=== PATIENT | male | born 1980 | race Hispanic/Latino ===

== ENCOUNTER 2017-01-10 21:48 | Observation (INO) | payer MEDICAID ==
[2017-01-10 21:48] VITALS: BMI 19.0
[2017-01-10 22:27] LABS: BASO % 0.6 % (0.0-2.0); EOS # 0.2 K/uL (0.0-0.7); EOS % 3.1 % (0.0-4.0); HEMATOCRIT 46.2 % (35.0-51.0); LYMPH # 2.3 K/uL (1.0-4.3); LYMPH % 31.6 % (20.0-40.0); MEAN CELL VOLUME 94.4 fl (80.0-94.0); MEAN CORPUSCULAR HEMOGLOBIN 31.9 pg (27.0-31.0); MEAN CORPUSCULAR HGB CONC 33.8 g/dL (33.0-37.0); MEAN PLATELET VOLUME 6.9 fl (7.2-11.7); MONO # 0.4 K/uL (0.0-0.8); MONO % 5.3 % (0.0-10.0); NEUT # 4.3 K/uL (1.8-7.0); NEUT % 59.4 % (50.0-75.0); NRBC % 0.1 % (0.0-0.0); RED CELL DISTRIBUTION WIDTH 13.4 % (11.5-14.5); WHITE BLOOD COUNT 7.2 K/uL (4.8-10.8)
--- NOTE | 2017-01-10 22:31 | ED PDOC ---
HPI: Psych/Substance Abuse Time Seen by Provider: 01/10/17 21:49 Chief Complaint (Nursing): Alcohol Ingestion Chief Complaint (Provider): Alcohol Ingestion ED Caveat: Intoxicated History Per: EMS History/Exam Limitations: intoxication Onset/Duration Of Symptoms: Unknown Current Symptoms Are (Timing): Still Present Modifying Factor(s): Alcohol Involuntary Hold By: None Additional Complaint(s): Ferny Allred is a 36 year old male, with an unknown past medical history, who presents to the ED on 01/10/17, via EMS, for the evaluation of acute alcohol intoxication of unknown duration. Per EMS, [place] [employer] personnel. Upon arrival in the ED patient became combative, spitting and threatening staff with subsequent attempt to leave facility. HPI and ROS are limited secondary to patient's intoxicated condition. PMD: unknown Past Medical History Reviewed: Historical Data, Nursing Documentation, Vital Signs Vital Signs: Last Vital Signs Temp Pulse 80 01/10/17 22:10 Resp 20 01/10/17 22:10 BP 120/86 01/10/17 22:10 Pulse Ox 98 01/10/17 22:10 - Medical History PMH: Anxiety, Back Problems, Fractures, Gastritis Denies: HIV, HTN, Chronic Kidney Disease, Seizures, Sexually Transmitted Disease - Family History Family History: States: Unknown Family Hx - Social History Alcohol: Other (yes) - Immunization History Hx Tetanus Toxoid Vaccination: No Hx Influenza Vaccination: No Hx Pneumococcal Vaccination: No - Home Medications Home Medications: Ambulatory Orders Medication Instructions Recorded Unobtainable 10/14/16 - Allergies Allergies/Adverse Reactions: Allergies Allergy/AdvReac Type Severity Reaction Status Date / Time No Known Allergies Allergy Verified 11/03/16 21:37 Review of Systems Review Of Systems: ROS cannot be obtained secondary to pt's inabilty to answer questions. Psych: Positive for: Other (acute alcohol intoxication) Physical Exam - Reviewed Nursing Documentation Reviewed: Yes Vital Signs Reviewed: Yes - Physical Exam Appears: Positive for: Non-toxic, In Acute Distress (acute psychiatric distress) Head Exam: Positive for: ATRAUMATIC, NORMOCEPHALIC Skin: Positive for: Normal Color, Warm, Dry Eye Exam: Positive for: EOMI (but with roving eye movements), PERRL (2mm and sluggish b/l), Conjunctival injection (b/l) ENT: Positive for: Other ((+) alcohol on breath with tacky mucous membranes) Cardiovascular/Chest: Positive for: Regular Rate, Rhythm. Negative for: Murmur Respiratory: Positive for: Normal Breath Sounds. Negative for: Respiratory Distress Gastrointestinal/Abdominal: Positive for: Normal Exam, Soft. Negative for: Tenderness Extremity: Positive for: Normal ROM (moving all extremities). Negative for: Deformity Neurologic/Psych: Positive for: Alert. Negative for: Oriented (disoriented with slurred/incomprehensible speech), Motor/Sensory Deficits - Laboratory Results Result Diagrams: 01/10/17 22:22 01/10/17 22:22 - ECG O2 Sat by Pulse Oximetry: 98 (RA) Pulse Ox Interpretation: Normal - Critical Care Total Time (In Min): 30 Medical Decision Making Medical Decision Makin:49 Initial Impression: acute alcohol intoxication Review of previous records indicates that patient has been seen in the ED multiple times for alcohol intoxication. As patient is combative upon arrival and in acute psychiatric distress will order application of physical restraints as well as administration of Ativan 2mg IM and Haldol 5mg IM for safety of both patient and staff. 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 See Obs note for further updates. Scribe Attestation: Documented by Gabby Price, acting as a scribe for Claudia Meek MD. Provider Scribe Attestation: All medical record entries made by the Scribe were at my direction and personally dictated by me. I have reviewed the chart and agree that the record accurately reflects my personal performance of the history, physical exam, medical decision making, and the department course for this patient. I have also personally directed, reviewed, and agree with the discharge instructions and disposition. ED OBSERVATION Date of observation admission: 01/10/17 Time of observation admission: 22:10 - Observation admission statement Patient is being placed in observation because:: Secondary to acute alcohol intoxication and administration of both Ativan and Haldol IM. - Goals of Observation Goals of observation are:: Results of ED workup, clinical sobriety, reevaluation and final disposition. - Progress Note Progress Note: 01/10/17 22:30 Upon provider reevaluation patient is much calmer and somnolent. Vital signs stable. 12am Pt still sleeping. Arousable to voice. Endorsed to Dr Flores pending sobriety, reassessment and ER final disposition Disposition - Clinical Impression Clinical Impression: Alcohol abuse - Disposition Disposition: Transfer of Care Disposition Time: 22:30 Condition: STABLE Patient Signed Over To: Ryan Flores
[2017-01-10 22:43] LABS: ALB/GLOB RATIO 1.4 (1.0-2.1); ALKALINE PHOSPHATASE 75 U/L (38-126); ALT/SGPT 32 U/L (21-72); AST/SGOT 35 U/L (17-59); BILIRUBIN,TOTAL 0.9 mg/dl (0.2-1.3); BLOOD UREA NITROGEN 11 mg/dl (9-20); CALCIUM 9.3 mg/dL (8.4-10.2); CARBON DIOXIDE 21 mmol/L (22-30); CHLORIDE 108 mmol/L (98-107); GFR AFRICAN-AMERICAN > 60; GLUCOSE,RANDOM 89 mg/dL (75-110); SODIUM 143 mmol/l (132-148); TOTAL PROTEIN 8.3 G/DL (6.3-8.2)
[2017-01-10 23:00] LABS: ALCOHOL SERUM 367 mg/dl (0-10)
--- NOTE | 2017-01-11 06:04 | ED PDOC ---
- Laboratory Results Result Diagrams: 01/10/17 22:22 01/10/17 22:22 - ECG O2 Sat by Pulse Oximetry: 96 Medical Decision Making Medical Decision Making: Case endorsed from Dr. Meek at 0000 pending sobriety. Case endorsed to Dr. Garrett at 0700 pending sobriety. Scribe Attestation: Documented by Emigdio Arechiga acting as a scribe for Ryan Flores MD. Provider Scribe Attestation: All medical record entries made by the Scribe were at my direction and personally dictated by me. I have reviewed the chart and agree that the record accurately reflects my personal performance of the history, physical exam, medical decision making, and the department course for this patient. I have also personally directed, reviewed, and agree with the discharge instructions and disposition. Disposition - Clinical Impression Clinical Impression: Alcohol abuse - POA Present On Arrival: None - Disposition Disposition: Transfer of Care Disposition Time: 07:00 Condition: STABLE Patient Signed Over To: Trevon Garrett Handoff Comments: pending sobriety
--- NOTE | 2017-01-11 07:41 | CARD ---
APPROVED REPORT EKG Measurement Heart [id number] <Conclusion> Normal sinus rhythm Incomplete right bundle branch block Borderline ECG
--- NOTE | 2017-01-11 08:04 | ED PDOC ---
- Laboratory Results Result Diagrams: 01/10/17 22:22 01/10/17 22:22 - ECG O2 Sat by Pulse Oximetry: 96 Medical Decision Making Medical Decision Making: Time: 0700 Patient signed out by Dr. Flores pending sobriety Scribe Attestation: Documented by Soledad Hoffmann acting as a scribe for Trevon Garrett MD MD Scribe Attestation: All medical record entries made by the Scribe were at my direction and personally dictated by me. I have reviewed the chart and agree that the record accurately reflects my personal performance of the history, physical exam, medical decision making, and the department course for this patient. I have also personally directed, reviewed, and agree with the discharge instructions and disposition. 1024: Stable. AAOx3. Pain free. Tolerated PO. Fu with pcp. Ambulated with no issues. Disposition - Clinical Impression Clinical Impression: Alcohol abuse - POA Present On Arrival: None - Disposition Disposition: Routine/Home Disposition Time: 10:25 Condition: STABLE
[2017-01-11 11:00] VITALS: BP 132/74; PULSE 72; RESP 20; TEMP 96.3; O2SAT 98
== END 2017-01-11 10:25 | disposition home or self-care (01) ==
LOC: H.ER 21:48 → H.EROBSV 22:10
PROVIDERS: ADMIT Emergency Medicine; ATTEND Emergency Medicine
DX: F10.129 Alcohol abuse with intoxication, unspecified (principal); Y90.8 Blood alcohol level of 240 mg/100 ml or more; Z78.1 Physical restraint status; F41.9 Anxiety disorder, unspecified; K29.70 Gastritis, unspecified, without bleeding

== ENCOUNTER 2017-01-13 09:07 | Emergency (ER) | payer MEDICAID ==
[2017-01-13 09:07] VITALS: BMI 19.0
[2017-01-13 09:19] VITALS: BP 125/60; RESP 16; TEMP 98.7; O2SAT 98
[2017-01-13] MEDS ORDERED: Sodium Chloride 0.9% 1,000 ML IV STA (09:23)
--- NOTE | 2017-01-13 09:31 | ED PDOC ---
HPI: Psych/Substance Abuse Time Seen by Provider: 01/13/17 09:12 Chief Complaint (Nursing): Abdominal Pain Chief Complaint (Provider): Abdominal Pain History Per: Patient History/Exam Limitations: no limitations Onset/Duration Of Symptoms: Hrs Current Symptoms Are (Timing): Still Present Suicide/Self Injury Attempted (Context): None Modifying Factor(s): Alcohol Involuntary Hold By: None Additional Complaint(s): Patient is a 36 year old male who presents to ED for possible withdrawal symptoms that began this morning. Patient reports that due to depression he has been binge drinking often, last drink last night. This morning woke with shaking , upper abdominal pain, nausea and left arm pain . Patient denies chest pain, palpations, vomiting or diarrhea. Past Medical History Reviewed: Historical Data, Nursing Documentation, Vital Signs Vital Signs: Last Vital Signs Temp 98.7 F 01/13/17 09:15 Pulse 78 01/13/17 09:15 Resp 16 01/13/17 09:15 BP 125/60 01/13/17 09:15 Pulse Ox 98 01/13/17 09:15 - Medical History PMH: Anxiety, Back Problems, Fractures, Gastritis Denies: HIV, HTN, Chronic Kidney Disease, Seizures, Sexually Transmitted Disease - Surgical History Surgical History: No Surg Hx - Family History Family History: States: Unknown Family Hx - Living Arrangements Living Arrangements: With Family - Immunization History Hx Tetanus Toxoid Vaccination: No Hx Influenza Vaccination: No Hx Pneumococcal Vaccination: No - Home Medications Home Medications: Ambulatory Orders Medication Instructions Recorded Ondansetron [Zofran] 4 mg PO Q8H #9 tab 01/13/17 - Allergies Allergies/Adverse Reactions: Allergies Allergy/AdvReac Type Severity Reaction Status Date / Time No Known Allergies Allergy Verified 01/13/17 09:19 Review of Systems ROS Statement: Except As Marked, All Systems Reviewed And Found Negative Constitutional: Negative for: Weakness Cardiovascular: Negative for: Chest Pain, Palpitations Respiratory: Negative for: Shortness of Breath Gastrointestinal: Positive for: Nausea, Abdominal Pain. Negative for: Vomiting , Diarrhea Musculoskeletal: Positive for: Arm Pain. Negative for: Neck Pain, Back Pain Neurological: Negative for: Weakness, Numbness Physical Exam - Reviewed Nursing Documentation Reviewed: Yes Vital Signs Reviewed: Yes - Physical Exam Appears: Positive for: Non-toxic ((+) AOB), No Acute Distress Skin: Positive for: Normal Color, Warm Eye Exam: Positive for: Normal appearance, EOMI, PERRL ENT: Negative for: Normal ENT Inspection ((+) DMM) Neck: Positive for: Normal, Painless ROM Cardiovascular/Chest: Positive for: Regular Rate, Rhythm. Negative for: Murmur Respiratory: Positive for: Normal Breath Sounds. Negative for: Respiratory Distress Gastrointestinal/Abdominal: Positive for: Normal Exam. Negative for: Tenderness , Distended Extremity: Positive for: Normal ROM Neurologic/Psych: Positive for: Alert, Oriented, Mood/Affect (anxious) - Laboratory Results Result Diagrams: 01/13/17 09:38 01/13/17 09:38 - ECG ECG: Positive for: Viewed By Me ECG Rhythm: Positive for: Normal QRS Rate: 74 O2 Sat by Pulse Oximetry: 98 (RA) Pulse Ox Interpretation: Normal - Radiology X-Ray: Viewed By Me X-Ray Interpretation: No Acute Disease - Progress Re-evaluation Time: 11:42 Condition: Re-examined, Improved Medical Decision Making Medical Decision Making: Time: 919 Initial impression: Alcohol withdrawal Initial plan: -- EKG -- Alcohol serum -- CMP -- UDS -- Folate -- Lipase -- Troponin -- Vitamin B12 -- Urine dip -- CBC -- CXR -- NSG, Pepcid and Zofran Scribe Attestation: Documented by Soledad Hoffmann acting as a scribe for Loly Taylor MD MD Scribe Attestation: All medical record entries made by the Scribe were at my direction and personally dictated by me. I have reviewed the chart and agree that the record accurately reflects my personal performance of the history, physical exam, medical decision making, and the department course for this patient. I have also personally directed, reviewed, and agree with the discharge instructions and disposition. Disposition - Clinical Impression Clinical Impression: Alcohol abuse - Patient ED Disposition Is Patient to be Admitted: No Doctor Will See Patient In The: Office Counseled Patient/Family Regarding: Diagnosis, Need For Followup, Rx Given - Disposition Referrals: [facility] [Outside] [facility] [Outside] [facility] [Outside] Disposition: Routine/Home Disposition Time: 11:43 Condition: IMPROVED Prescriptions: Ondansetron [Zofran] 4 mg PO Q8H #9 tab Instructions: Gastritis (ED) Forms: [facility] ED School/Work Excuse - POA Present On Arrival: None
--- NOTE | 2017-01-13 09:43 | CARD ---
APPROVED REPORT EKG Measurement Heart [id number] <Conclusion> Normal sinus rhythm with sinus arrhythmia Normal ECG
[2017-01-13 09:45] LABS: BASO % 0.3 % (0.0-2.0); EOS % 0.4 % (0.0-4.0); HEMATOCRIT 41.8 % (35.0-51.0); LYMPH % 10.9 % (20.0-40.0); MEAN CELL VOLUME 92.8 fl (80.0-94.0); MEAN CORPUSCULAR HEMOGLOBIN 31.6 pg (27.0-31.0); MEAN PLATELET VOLUME 7.1 fl (7.2-11.7); MONO # 0.6 K/uL (0.0-0.8); MONO % 6.9 % (0.0-10.0); NEUT # 7.7 K/uL (1.8-7.0); NEUT % 81.5 % (50.0-75.0); RED CELL DISTRIBUTION WIDTH 13.2 % (11.5-14.5); WHITE BLOOD COUNT 9.5 K/uL (4.8-10.8)
[2017-01-13 09:52] LABS: ALB/GLOB RATIO 1.4 (1.0-2.1); ALCOHOL SERUM < 10 mg/dl (0-10); ALKALINE PHOSPHATASE 61 U/L (38-126); ALT/SGPT 35 U/L (21-72); AST/SGOT 49 U/L (17-59); BILIRUBIN,TOTAL 1.9 mg/dl (0.2-1.3); BLOOD UREA NITROGEN 12 mg/dl (9-20); CALCIUM 9.8 mg/dL (8.4-10.2); CARBON DIOXIDE 23 mmol/L (22-30); CHLORIDE 104 mmol/L (98-107); GFR AFRICAN-AMERICAN > 60; GLUCOSE,RANDOM 113 mg/dL (75-110); LIPASE 113 U/L (23-300); SODIUM 143 mmol/l (132-148); TOTAL PROTEIN 7.8 G/DL (6.3-8.2)
--- NOTE | 2017-01-13 09:56 | RAD ---
HISTORY: left arm numbness, h/o alcohol abuse COMPARISON: No prior. TECHNIQUE: Chest PA and lateral FINDINGS: LUNGS: No active pulmonary disease. PLEURA: Minor biapical pleural thickening CARDIOVASCULAR: Normal. OSSEOUS STRUCTURES: No significant abnormalities. VISUALIZED UPPER ABDOMEN: Normal. OTHER FINDINGS: None. IMPRESSION: No active disease.
[2017-01-13 09:57] VITALS: PULSE 74
[2017-01-14 22:48] LABS: FOLATE 8.9 ng/mL
== END 2017-01-13 11:59 | disposition home or self-care (01) ==
LOC: H.ER 09:07
DX: R10.13 Epigastric pain (principal); F10.239 Alcohol dependence with withdrawal, unspecified; F32.9 Major depressive disorder, single episode, unspecified; M79.602 Pain in left arm; R11.0 Nausea

== ENCOUNTER 2017-03-18 23:45 | Emergency (ER) | payer MEDICAID ==
[2017-03-18 23:45] VITALS: BMI 21.7
[2017-03-18 23:48] VITALS: BP 126/82; PULSE 98; RESP 15; TEMP 98; O2SAT 98
[2017-03-19] MEDS ORDERED: TDAP Vaccine 0.5 mL Syr IM ONE (00:15)
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
== END 2017-03-19 05:49 | disposition home or self-care (01) ==
LOC: H.ER 23:45
DX: S02.2XXA Fracture of nasal bones, initial encounter for closed fracture (principal); S09.93XA Unspecified injury of face, initial encounter; Y04.0XXA Assault by unarmed brawl or fight, initial encounter; Y92.89 Other specified places as the place of occurrence of the external cause; F41.9 Anxiety disorder, unspecified

== ENCOUNTER 2017-03-19 19:59 | Observation (INO) | payer MEDICAID ==
[2017-03-19 19:59] VITALS: BMI 21.7
--- NOTE | 2017-03-19 20:21 | ED PDOC ---
HPI: Psych/Substance Abuse Time Seen by Provider: 03/19/17 20:04 Chief Complaint (Nursing): Alcohol Ingestion Chief Complaint (Provider): etoh History Per: EMS Additional History Per: Patient, EMS Additional Complaint(s): 36 y/o male brought in by EMS for alcohol intoxication. Admits to drinking. Denies acute medical or psychiatric complaints. Past Medical History Reviewed: Historical Data, Nursing Documentation, Vital Signs Vital Signs: Last Vital Signs Temp 98.9 F 03/19/17 20:00 Pulse 108 H 03/19/17 20:00 Resp 16 03/19/17 20:00 BP 160/131 H 03/19/17 20:00 Pulse Ox 100 03/19/17 20:00 - Medical History PMH: Anxiety, Back Problems, Fractures, Gastritis Denies: HIV, HTN, Chronic Kidney Disease, Seizures, Sexually Transmitted Disease - Family History Family History: States: Unknown Family Hx - Immunization History Hx Tetanus Toxoid Vaccination: No Hx Influenza Vaccination: No Hx Pneumococcal Vaccination: No - Home Medications Home Medications: Ambulatory Orders Medication Instructions Recorded oxyCODONE/Acetaminophen [Percocet 1 ea PO Q6 #6 tab 03/19/17 5/325 mg Tab] - Allergies Allergies/Adverse Reactions: Allergies Allergy/AdvReac Type Severity Reaction Status Date / Time No Known Allergies Allergy Verified 03/18/17 23:48 Review of Systems ROS Statement: Except As Marked, All Systems Reviewed And Found Negative Physical Exam - Reviewed Nursing Documentation Reviewed: Yes Vital Signs Reviewed: Yes - Physical Exam Appears: Positive for: Well, Non-toxic, No Acute Distress Head Exam: Positive for: ATRAUMATIC, NORMAL INSPECTION, NORMOCEPHALIC Skin: Positive for: Normal Color Eye Exam: Positive for: Normal appearance ENT: Positive for: Normal ENT Inspection Cardiovascular/Chest: Positive for: Regular Rate, Rhythm Respiratory: Positive for: Normal Breath Sounds Extremity: Positive for: Normal ROM Neurologic/Psych: Positive for: Alert, Other (+AOB, unsteady gait) - Laboratory Results Result Diagrams: 03/19/17 20:41 03/19/17 20:41 - ECG O2 Sat by Pulse Oximetry: 100 - Progress ED Course And Treament: Patient attempting to get out of stretcher with unsteady gait. SEcutiry at bedside to escort patient back to bed but patient continues to get up. Patient intoxicated, unwilling to comply with alternative measures offered; patient restrained and medicated for patient/staff safety and patient agitation. labs, accucheck ordered ED OBSERVATION Date of observation admission: 03/19/17 Time of observation admission: 21:13 - Observation admission statement Patient is being placed in observation because:: acute alcohol intoxication - Goals of Observation Goals of observation are:: observe for clinical sobriety - Progress Note Progress Note: 03/19/17 21:13 patient sleeping 23:00 Patient sleeping; no distress 03/20/17 2:00 Patient sleeping; no distress 4:00 Patient awake, requesting juice. 03/20/17 05:21 Patient ambulating with steady gait, stable for discharge. Disposition - Clinical Impression Clinical Impression: Alcohol intoxication - Patient ED Disposition Is Patient to be Admitted: No Counseled Patient/Family Regarding: Studies Performed, Diagnosis, Need For Followup - Disposition Disposition: Routine/Home Disposition Time: 05:22 Condition: STABLE
[2017-03-19 20:44] LABS: BASO % 0.3 % (0.0-2.0); EOS # 0.2 K/uL (0.0-0.7); EOS % 2.4 % (0.0-4.0); HEMATOCRIT 40.2 % (35.0-51.0); LYMPH # 2.7 K/uL (1.0-4.3); LYMPH % 30.5 % (20.0-40.0); MEAN CELL VOLUME 90.7 fl (80.0-94.0); MEAN CORPUSCULAR HEMOGLOBIN 31.4 pg (27.0-31.0); MEAN CORPUSCULAR HGB CONC 34.6 g/dL (33.0-37.0); MEAN PLATELET VOLUME 7.2 fl (7.2-11.7); MONO # 0.7 K/uL (0.0-0.8); MONO % 7.9 % (0.0-10.0); NEUT # 5.2 K/uL (1.8-7.0); NEUT % 58.9 % (50.0-75.0); NRBC % 0.1 % (0.0-0.0); RED CELL DISTRIBUTION WIDTH 12.9 % (11.5-14.5); WHITE BLOOD COUNT 8.9 K/uL (4.8-10.8)
[2017-03-19 20:54] LABS: ALB/GLOB RATIO 1.6 (1.0-2.1); ALKALINE PHOSPHATASE 75 U/L (38-126); ALT/SGPT 44 U/L (21-72); AST/SGOT 77 U/L (17-59); BILIRUBIN,TOTAL 1.8 mg/dl (0.2-1.3); BLOOD UREA NITROGEN 16 mg/dl (9-20); CALCIUM 9.1 mg/dL (8.4-10.2); CARBON DIOXIDE 23 mmol/L (22-30); CHLORIDE 109 mmol/L (98-107); GFR AFRICAN-AMERICAN > 60; GLUCOSE,RANDOM 112 mg/dL (75-110); POTASSIUM 4.2 MMOL/L (3.6-5.0); SODIUM 149 mmol/l (132-148); TOTAL PROTEIN 7.9 G/DL (6.3-8.2)
[2017-03-19 21:06] LABS: ALCOHOL SERUM 361 mg/dl (0-10)
[2017-03-20 04:20] VITALS: BP 128/60; PULSE 100; RESP 18; TEMP 97.7
[2017-03-20 04:34] VITALS: O2SAT 100
== END 2017-03-20 05:40 | disposition home or self-care (01) ==
LOC: H.ER 19:59 → H.EROBSV 21:12
PROVIDERS: ADMIT Emergency Medicine; ATTEND Emergency Medicine
DX: F10.129 Alcohol abuse with intoxication, unspecified (principal); F41.9 Anxiety disorder, unspecified; Y90.8 Blood alcohol level of 240 mg/100 ml or more

== ENCOUNTER 2017-03-22 17:30 | Emergency (ER) | payer MEDICAID ==
[2017-03-22 17:31] VITALS: BMI 23.7
[2017-03-22 17:39] VITALS: PULSE 92; TEMP 98
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
--- NOTE | 2017-03-22 18:44 | CT ---
PROCEDURE: CT Cervical Spine without contrast HISTORY: <ASSAULT> COMPARISON: None available. TECHNIQUE: Axial computed tomography images were obtained of the cervical spine without the use of intravenous contrast. Coronal and sagittal reformatted images were created and reviewed. Radiation dose: Total exam DLP = 460 mGy-cm. This CT exam was performed using one or more of the following dose reduction techniques: Automated exposure control, adjustment of the mA and/or kV according to patient size, and/or use of iterative reconstruction technique. FINDINGS: VERTEBRAE: No fracture. Normal alignment. No destructive bony lesion. DISCS/SPINAL CANAL/NEURAL FORAMINA: No significant central canal or neural foraminal stenosis. Severe disc space narrowing at C5-6 with anterior posterior ridging. PARASPINAL SOFT TISSUES: Unremarkable. OTHER FINDINGS: None. IMPRESSION: No acute fracture.
[2017-03-22 22:32] VITALS: BP 122/82; RESP 19; O2SAT 98
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
--- NOTE | 2017-03-23 10:47 | RAD ---
PROCEDURE: Radiographs of the Right Shoulder HISTORY: shoulder injury COMPARISON: No prior. FINDINGS: BONES: Normal. No fracture. JOINTS: Normal. Glenohumeral and acromioclavicular joints preserved. No osteoarthritis. SOFT TISSUES: Normal. OTHER FINDINGS: None. IMPRESSION: No evidence of acute displaced fracture nor dislocation.
== END 2017-03-22 23:46 | disposition home or self-care (01) ==
LOC: H.ER 17:30
DX: S02.2XXA Fracture of nasal bones, initial encounter for closed fracture (principal); S09.93XA Unspecified injury of face, initial encounter; S40.019A Contusion of unspecified shoulder, initial encounter; Y09 Assault by unspecified means; Y92.89 Other specified places as the place of occurrence of the external cause; F10.10 Alcohol abuse, uncomplicated; F41.9 Anxiety disorder, unspecified

== ENCOUNTER 2017-03-28 23:48 | Emergency (ER) | payer MEDICAID ==
[2017-03-28 23:49] VITALS: BMI 23.7
[2017-03-29 00:20] VITALS: O2SAT 98
[2017-03-29 00:28] VITALS: BP 136/72; PULSE 76; RESP 14; TEMP 97.9
--- NOTE | 2017-03-29 01:03 | ED PDOC ---
HPI: Psych/Substance Abuse Time Seen by Provider: 03/29/17 00:33 Chief Complaint (Nursing): Alcohol Ingestion Chief Complaint (Provider): etoh History Per: Patient Additional History Per: Patient Additional Complaint(s): 36 y/o nondomiciled male presents to the ED intoxicated, requesting place to rest. PAtient well known to ED for same. Denies acute medical or psychiatric complaints. Past Medical History Reviewed: Historical Data, Nursing Documentation, Vital Signs Vital Signs: Last Vital Signs Temp 97.9 F 03/29/17 00:25 Pulse 76 03/29/17 00:25 Resp 14 03/29/17 00:25 BP 136/72 03/29/17 00:25 Pulse Ox 98 03/29/17 00:25 - Medical History PMH: Anxiety, Back Problems, Fractures, Gastritis Denies: HIV, HTN, Chronic Kidney Disease, Seizures, Sexually Transmitted Disease - Family History Family History: States: Unknown Family Hx - Immunization History Hx Tetanus Toxoid Vaccination: No Hx Influenza Vaccination: No Hx Pneumococcal Vaccination: No - Home Medications Home Medications: Ambulatory Orders Medication Instructions Recorded Naproxen [Naprosyn] 500 mg PO Q12H PRN #10 tablet 03/21/17 - Allergies Allergies/Adverse Reactions: Allergies Allergy/AdvReac Type Severity Reaction Status Date / Time No Known Allergies Allergy Verified 03/21/17 08:05 Review of Systems ROS Statement: Except As Marked, All Systems Reviewed And Found Negative Physical Exam - Reviewed Nursing Documentation Reviewed: Yes Vital Signs Reviewed: Yes - Physical Exam Appears: Positive for: Well, Non-toxic, No Acute Distress Head Exam: Positive for: ATRAUMATIC, NORMAL INSPECTION, NORMOCEPHALIC Skin: Positive for: Normal Color Eye Exam: Positive for: Normal appearance ENT: Positive for: Normal ENT Inspection Cardiovascular/Chest: Positive for: Regular Rate, Rhythm Respiratory: Positive for: Normal Breath Sounds Gastrointestinal/Abdominal: Positive for: Normal Exam Back: Positive for: Normal Inspection Extremity: Positive for: Normal ROM Neurologic/Psych: Positive for: Alert, Oriented - ECG O2 Sat by Pulse Oximetry: 98 - Progress ED Course And Treament: accucheck 3:45 Patient awake, alert, oriented x3; ambulating steady gait. Tolerating PO. Stable for discharge Disposition - Clinical Impression Clinical Impression: Alcohol abuse with intoxication - Patient ED Disposition Is Patient to be Admitted: No Counseled Patient/Family Regarding: Studies Performed, Diagnosis, Need For Followup - Disposition Disposition: Routine/Home Disposition Time: 03:54 Condition: STABLE Instructions: Abuse of Alcohol (ED)
== END 2017-03-29 06:17 | disposition home or self-care (01) ==
LOC: H.ER 23:48
DX: F10.129 Alcohol abuse with intoxication, unspecified (principal)

== ENCOUNTER 2017-04-02 09:47 | Emergency (ER) | payer MEDICAID ==
[2017-04-02 09:48] VITALS: BMI 23.7
[2017-04-02 09:52] VITALS: BP 151/68; PULSE 106; RESP 18; TEMP 98.9; O2SAT 100
[2017-04-02] MEDS ORDERED: Sodium Chloride 0.9% 1,000 ML IV STA (10:24)
--- NOTE | 2017-04-02 10:51 | ED PDOC ---
HPI: General Adult Time Seen by Provider: 04/02/17 10:03 Chief Complaint (Nursing): Abdominal Pain Chief Complaint (Provider): Dizziness, abdominal pain History Per: Patient History/Exam Limitations: no limitations Onset/Duration Of Symptoms: Hrs Have you had recent travel within the past 21 days to any of the following countries: [place], [place], [place] or [place]?: No Current Symptoms Are (Timing): Still Present Severity: Moderate Additional History Per: Patient Additional Complaint(s): The pt is a 36yo male, presents to the ED for evaluation of "heat exhaustion." Pt reports he was working last night and while on his way home this morning, felt dizzy with associated abdominal pain. Pt reports he feels exhausted and felt as if he would pass out. Of note, pt reports he did drink one beer this morning, states it helps him fall asleep after a night of work. He denies any smoking or drug use. Additionally denies any headache, chest pain, vomiting or diarrhea. Pt offers no additional medical complaints. Past Medical History Reviewed: Historical Data, Nursing Documentation, Vital Signs Vital Signs: Last Vital Signs Temp 98.9 F 04/02/17 09:51 Pulse 106 H 04/02/17 09:51 Resp 18 04/02/17 09:51 BP 151/68 H 04/02/17 09:51 Pulse Ox 100 04/02/17 10:53 - Medical History PMH: Anxiety, Back Problems, Fractures, Gastritis Denies: HIV, HTN, Chronic Kidney Disease, Seizures, Sexually Transmitted Disease - Family History Family History: States: Unknown Family Hx - Social History Current smoker - smoking cessation education provided: No Alcohol: Other (1 beer a day) Drugs: Denies - Immunization History Hx Tetanus Toxoid Vaccination: No Hx Influenza Vaccination: No Hx Pneumococcal Vaccination: No - Home Medications Home Medications: Ambulatory Orders Medication Instructions Recorded Famotidine [Pepcid] 20 mg PO BID #28 tab 04/02/17 Ondansetron [Zofran] 4 mg PO Q8H #9 tab 04/02/17 - Allergies Allergies/Adverse Reactions: Allergies Allergy/AdvReac Type Severity Reaction Status Date / Time No Known Allergies Allergy Verified 04/02/17 09:50 Review of Systems ROS Statement: Except As Marked, All Systems Reviewed And Found Negative Constitutional: Positive for: Other (exhausted) Cardiovascular: Negative for: Chest Pain Gastrointestinal: Positive for: Abdominal Pain Neurological: Positive for: Dizziness. Negative for: Headache Physical Exam - Reviewed Nursing Documentation Reviewed: Yes Vital Signs Reviewed: Yes - Physical Exam Appears: Positive for: Well, Non-toxic, No Acute Distress Head Exam: Positive for: ATRAUMATIC, NORMAL INSPECTION, NORMOCEPHALIC Skin: Positive for: Normal Color, Warm, Dry (lips dry) Eye Exam: Positive for: Normal appearance ENT: Positive for: Other (tongue dry) Neck: Positive for: Normal, Supple Cardiovascular/Chest: Positive for: Regular Rate, Rhythm Respiratory: Positive for: Normal Breath Sounds. Negative for: Respiratory Distress Gastrointestinal/Abdominal: Positive for: Normal Exam, Soft. Negative for: Tenderness Neurologic/Psych: Positive for: Alert, Oriented - Laboratory Results Result Diagrams: 04/02/17 10:50 04/02/17 10:50 - ECG O2 Sat by Pulse Oximetry: 100 (RA) Pulse Ox Interpretation: Normal Medical Decision Making Medical Decision Making: Time: 1012 Impression: Abdominal pain Plan: * Bloodwork * IV Fluids * Pepcid 20 mg IVP * Zofran 4mg IVP * Reassess Scribe Attestation: Documented by Lucia Edouard acting as a scribe for Loly Taylor MD. Provider Attestation: All medical record entries made by the Scribe were at my direction and personally dictated by me. I have reviewed the chart and agree that the record accurately reflects my personal performance of the history, physical exam, medical decision making, and the department course for this patient. I have also personally directed, reviewed, and agree with the discharge instructions and disposition. Disposition - Clinical Impression Clinical Impression: Gastritis - Patient ED Disposition Is Patient to be Admitted: No Doctor Will See Patient In The: Office Counseled Patient/Family Regarding: Diagnosis, Need For Followup, Rx Given - Disposition Referrals: [facility] [Outside] [place] [facility] [employer] [facility] [Outside] [facility] [Outside] Disposition: Routine/Home Disposition Time: 14:33 Condition: STABLE Prescriptions: Famotidine [Pepcid] 20 mg PO BID #28 tab Ondansetron [Zofran] 4 mg PO Q8H #9 tab Instructions: Gastritis (ED) Forms: [employer] (Welsh) - POA Present On Arrival: None
[2017-04-02 11:04] LABS: BASO % 0.2 % (0.0-2.0); EOS % 0.2 % (0.0-4.0); LYMPH # 0.6 K/uL (1.0-4.3); MEAN CELL VOLUME 91.2 fl (80.0-94.0); MEAN PLATELET VOLUME 7.1 fl (7.2-11.7); MONO # 0.5 K/uL (0.0-0.8); MONO % 8.9 % (0.0-10.0); NEUT # 4.1 K/uL (1.8-7.0); NEUT % 78.7 % (50.0-75.0); NRBC % 0.1 % (0.0-0.0); RED CELL DISTRIBUTION WIDTH 13.8 % (11.5-14.5); WHITE BLOOD COUNT 5.2 K/uL (4.8-10.8)
[2017-04-02 11:12] LABS: ALB/GLOB RATIO 1.6 (1.0-2.1); ALKALINE PHOSPHATASE 81 U/L (38-126); ALT/SGPT 62 U/L (21-72); AST/SGOT 82 U/L (17-59); BILIRUBIN,TOTAL 1.8 mg/dl (0.2-1.3); BLOOD UREA NITROGEN 8 mg/dl (9-20); CALCIUM 9.5 mg/dL (8.4-10.2); CARBON DIOXIDE 23 mmol/L (22-30); CHLORIDE 102 mmol/L (98-107); GFR AFRICAN-AMERICAN > 60; GLUCOSE,RANDOM 86 mg/dL (75-110); LIPASE 245 U/L (23-300); POTASSIUM 3.7 MMOL/L (3.6-5.0); SODIUM 140 mmol/l (132-148); TOTAL PROTEIN 8.2 G/DL (6.3-8.2)
[2017-04-02] MEDS ORDERED: Sucralfate 1 gm/10 ml Oral Susp UD PO STA (13:03)
== END 2017-04-02 16:35 | disposition home or self-care (01) ==
LOC: H.ER 09:47
DX: K29.70 Gastritis, unspecified, without bleeding (principal); R42 Dizziness and giddiness; R11.0 Nausea

== ENCOUNTER 2017-04-03 19:11 | Emergency (ER) | payer MEDICAID ==
[2017-04-03 19:11] VITALS: BMI 23.7
[2017-04-03 19:16] VITALS: RESP 16; TEMP 98.5
--- NOTE | 2017-04-03 19:57 | ED PDOC ---
Arrival/HPI - General Chief Complaint: Pain, Chronic Time Seen by Provider: 04/03/17 19:21 Past Medical History - Past History Past History: Unable to Obtain - Infectious Disease Hx of Infectious Diseases: None - Tetanus Immunization Tetanus Immunization: Unknown - Cardiac Hx Hypertension: No - Pulmonary Hx Respiratory Disorders: No - Neurological Hx Seizures: No - HEENT Hx HEENT Disorder: Yes Other/Comment: Hx R orbit Fx - Renal Hx Renal Disorder: No - Endocrine/Metabolic Hx Endocrine Disorders: No - Hematological/Oncological Hx Blood Disorders: No - Integumentary Hx Dermatological Disorder: No - Musculoskeletal/Rheumatological Hx Fractures: Yes - Gastrointestinal Hx Gastritis: Yes - Genitourinary/Gynecological Hx Sexually Transmitted Diseases: No - Psychiatric Hx Anxiety: Yes Hx Substance Use: No - Surgical History Other/Comment: r head/ehe surg 2008 - Anesthesia Hx Anesthesia: Yes Hx Anesthesia Reactions: No - Suicidal Assessment Feels Threatened In Home Enviroment: No Family/Social History Smoking Status: Heavy Smoker > 10 Cigarettes Daily Hx Alcohol Use: Yes Hx Substance Use: No Substance used: heroin Allergies/Home Meds Allergies/Adverse Reactions: Allergies No Known Allergies Allergy (Verified 04/02/17 09:50) Physical Exam Vital Signs Temp Pulse Resp Pulse Ox 04/03/17 19:13 98.5 F 103 H 16 118 H Disposition/Present on Arrival - Present on Arrival History of DVT/PE: No History of Uncontrolled Diabetes: No Urinary Catheter: No History Surgical Site Infection Following: None - Disposition
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
--- NOTE | 2017-04-03 20:59 | CT ---
EXAM: CT Head Without Intravenous Contrast CLINICAL HISTORY: 36 years old, male; Pain; Headache; Tension; Additional info: Blurry vision, change in gait, change in memory TECHNIQUE: Axial computed tomography images of the head/brain without intravenous contrast. This CT exam was performed using one or more of the following dose reduction techniques: automated exposure control, adjustment of the mA and/or kV according to patient size, and/or use of iterative reconstruction technique. Coronal and sagittal reformatted images were created and reviewed. EXAM DATE/TIME: 04/03/2017 8:17 PM COMPARISON: CT - HEAD W/O CONTRAST 03/19/2017 12:33:46 AM FINDINGS: Brain: Ventricles are normal in size and configuration. There is no midline shift. There are no intra-axial or extra-axial hemorrhages. 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 There are no abnormal fluid collections. Bower-white differentiation is maintained. Ventricles: See above. Bones: Cranial vault is intact. There are postsurgical changes in the facial bones greatest on the right. There are multiple small plates with screws. Soft tissues: unremarkable Sinuses: There is no acute sinusitis. Ears and mastoids: Middle ears and mastoids are unremarkable Orbits: There are no acute orbital abnormalities. There are postsurgical changes in the right bony orbit. IMPRESSION: No acute intracranial abnormality Additional findings as described above.
[2017-04-03 21:04] VITALS: O2SAT 118
[2017-04-03 21:05] VITALS: PULSE 68
== END 2017-04-03 21:47 | disposition home or self-care (01) ==
LOC: H.ER 19:11
DX: S06.0X9A Concussion with loss of consciousness of unspecified duration, initial encounter (principal); W19.XXXA Unspecified fall, initial encounter

== ENCOUNTER 2017-04-08 09:26 | Emergency (ER) | payer MEDICAID ==
[2017-04-08 09:27] VITALS: BMI 23.7
[2017-04-08 09:47] VITALS: BP 135/70; PULSE 88; RESP 19; TEMP 98.8; O2SAT 100
== END 2017-04-08 10:10 | disposition left against medical advice (07) ==
LOC: H.ER 09:26
DX: Z02.89 Encounter for other administrative examinations (principal)

== ENCOUNTER 2017-11-24 19:53 | Emergency (ER) | payer MEDICAID ==
[2017-11-24 19:53] VITALS: BMI 23.7
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
--- NOTE | 2017-11-24 21:56 | ED PDOC ---
HPI: Psych/Substance Abuse Time Seen by Provider: 11/24/17 20:12 Chief Complaint (Nursing): Alcohol Ingestion Chief Complaint (Provider): Alcohol Intoxication ED Caveat: Intoxicated (and not reliable) History Per: Patient History/Exam Limitations: no limitations Onset/Duration Of Symptoms: Hrs (1 day ago) Current Symptoms Are (Timing): Still Present Additional Complaint(s): 37 y.o male, brought in by EMS, with a history of alcohol abuse, presents to the ED after being found publicly intoxicated with unsteady gait. Of note, patient's is an unreliable historian due to his current intoxicated state. He also notes that there was some injury to his face that resulted to a black eye, but doesn't remember if it was chronic or if it happened recently. Patient denies any physical complaints. Of note, patient was seen in [facility] on November 19, 2017 for alcohol intoxication and fall, where he also had head and maxillofacial CTs taken, which were both negative. Past Medical History Reviewed: Historical Data, Nursing Documentation, Vital Signs Vital Signs: Last Vital Signs Temp 97.3 F L 11/24/17 20:04 Pulse 84 11/24/17 20:04 Resp 18 11/24/17 20:04 BP 134/84 11/24/17 20:04 Pulse Ox 98 11/24/17 20:04 - Medical History PMH: Anxiety, Back Problems, Fractures, Gastritis Denies: HIV, HTN, Chronic Kidney Disease, Seizures, Sexually Transmitted Disease - Surgical History Surgical History: No Surg Hx - Family History Family History: States: Unknown Family Hx - Social History Current smoker - smoking cessation education provided: No Ex-Smoker (has not smoked in the last 12 months): No Alcohol: > 2 Drinks/Day Drugs: Denies - Immunization History Hx Tetanus Toxoid Vaccination: No Hx Influenza Vaccination: No Hx Pneumococcal Vaccination: No - Home Medications Home Medications: Ambulatory Orders Medication Instructions Recorded Unobtainable 11/19/17 - Allergies Allergies/Adverse Reactions: Allergies Allergy/AdvReac Type Severity Reaction Status Date / Time No Known Allergies Allergy Verified 11/19/17 18:53 Review of Systems ROS Statement: Except As Marked, All Systems Reviewed And Found Negative Review Of Systems: ROS cannot be obtained secondary to pt's inabilty to answer questions. (patient is intoxicated) Neurological: Positive for: Incoordination (unsteady gait) Physical Exam - Reviewed Nursing Documentation Reviewed: Yes Vital Signs Reviewed: Yes - Physical Exam Appears: Positive for: Well, Non-toxic, No Acute Distress Head Exam: Positive for: ATRAUMATIC, NORMAL INSPECTION, NORMOCEPHALIC Skin: Positive for: Normal Color (abrasions on the right side of his face), Warm Eye Exam: Positive for: Normal appearance, EOMI, PERRL, Other (periorbital ecchymosis) Neck: Positive for: Normal, Painless ROM, Supple Cardiovascular/Chest: Positive for: Regular Rate, Rhythm. Negative for: Murmur Respiratory: Positive for: Normal Breath Sounds. Negative for: Respiratory Distress Gastrointestinal/Abdominal: Positive for: Normal Exam, Soft. Negative for: Tenderness Back: Positive for: Normal Inspection Extremity: Positive for: Normal ROM. Negative for: Pedal Edema, Deformity Neurologic/Psych: Positive for: Alert, Oriented, Gait (unsteady), Other ( slurred speech) - ECG O2 Sat by Pulse Oximetry: 98 (RA) Pulse Ox Interpretation: Normal Medical Decision Making Medical Decision Makin:39 Impression: --Alcohol Intoxication Differential: --rule out head injury Plan: --Alcohol serum --Ativan --Restraint 20:40 Patient was trying to get out of bed so was placed in restraints for a short period of time for the medical staff and his own safety. 4:56 Patient appears awake and alert, and ambulating with steady gait. Patient is stable for discharge home. Scribe Attestation: Documented by Jorge Valderrama and Loraine Jacinto acting as scribes for Court Oquendo MD. Provider Attestation: All medical record entries made by the Scribe were at my direction and personally dictated by me. I have reviewed the chart and agree that the record accurately reflects my personal performance of the history, physical exam, medical decision making, and the department course for this patient. I have also personally directed, reviewed, and agree with the discharge instructions and disposition. Disposition - Clinical Impression Clinical Impression: Alcohol abuse with uncomplicated intoxication - Patient ED Disposition Is Patient to be Admitted: No Doctor Will See Patient In The: Office Counseled Patient/Family Regarding: Studies Performed, Diagnosis, Need For Followup - Disposition Referrals: [facility] [Outside] Disposition: Routine/Home Disposition Time: 04:56 Condition: GOOD Instructions: Alcohol Intoxication (DC)
[2017-11-25 04:59] VITALS: BP 132/71; PULSE 84; RESP 15; TEMP 98.1
[2017-11-25 05:03] VITALS: O2SAT 98
== END 2017-11-25 05:37 | disposition home or self-care (01) ==
LOC: H.ER 19:53
DX: F10.120 Alcohol abuse with intoxication, uncomplicated (principal); F41.9 Anxiety disorder, unspecified
CPT/HCPCS: 70450; 80320; 96372; 99282; J2060

== ENCOUNTER 2017-12-01 10:11 | Emergency (ER) | payer MEDICAID ==
[2017-12-01 10:36] VITALS: O2SAT 97
[2017-12-01 10:37] VITALS: BMI 24.3
[2017-12-01] MEDS ORDERED: Alum-Mag Hydrox-Simethicone Susp (30 mL) PO STA (11:44)
[2017-12-01] MEDS ORDERED: Sodium Chloride 0.9% 1,000 ML IV STA (11:45)
--- NOTE | 2017-12-01 11:47 | ED PDOC ---
HPI: Abdomen Time Seen by Provider: 12/01/17 11:44 Chief Complaint (Nursing): Abdominal Pain Chief Complaint (Provider): abdominal pain History Per: Patient (37 y/o male here for abdominal pain ongoing x 1 week described as epigastric. Denies any vomiting. NOtes drinking etoh yesterday. Has not tried any medications. Notes blood in stool recently.) Past Medical History Reviewed: Historical Data, Nursing Documentation, Vital Signs Vital Signs: Last Vital Signs Temp 97.8 F 12/01/17 15:04 Pulse 78 12/01/17 15:04 Resp 19 12/01/17 15:04 BP 128/78 12/01/17 15:04 Pulse Ox 97 12/01/17 13:58 - Medical History PMH: Anxiety, Back Problems, Fractures, Gastritis Denies: HIV, HTN, Chronic Kidney Disease, Seizures, Sexually Transmitted Disease - Family History Family History: States: Unknown Family Hx - Immunization History Hx Tetanus Toxoid Vaccination: No Hx Influenza Vaccination: No Hx Pneumococcal Vaccination: No - Home Medications Home Medications: Ambulatory Orders Medication Instructions Recorded Pantoprazole Sodium [Protonix] 40 mg PO DAILY #7 ect 12/01/17 - Allergies Allergies/Adverse Reactions: Allergies Allergy/AdvReac Type Severity Reaction Status Date / Time No Known Allergies Allergy Verified 11/27/17 03:21 Review of Systems ROS Statement: Except As Marked, All Systems Reviewed And Found Negative Physical Exam - Reviewed Nursing Documentation Reviewed: Yes Vital Signs Reviewed: Yes - Physical Exam Appears: Positive for: Well, Non-toxic, No Acute Distress Head Exam: Positive for: ATRAUMATIC, NORMAL INSPECTION, NORMOCEPHALIC Skin: Positive for: Normal Color, Warm, DRY Eye Exam: Positive for: EOMI, Normal appearance, PERRL ENT: Positive for: Normal ENT Inspection Neck: Positive for: Normal, Painless ROM Cardiovascular/Chest: Positive for: Regular Rate, Rhythm Respiratory: Positive for: CNT, Normal Breath Sounds Gastrointestinal/Abdominal: Positive for: Normal Exam, Bowel Sounds, Soft Back: Positive for: Normal Inspection Rectal: Positive for: Other (no blood noted. minimal stool in vault. ) Extremity: Positive for: Normal ROM Neurologic/Psych: Positive for: Alert, Oriented - Laboratory Results Result Diagrams: 12/01/17 12:00 12/01/17 12:00 - ECG O2 Sat by Pulse Oximetry: 97 - Progress ED Course And Treament: maalox 30 ml x 1 dose Patient requesting food in ED Lab states they cannot perform occult blood guiac due to insufficient stool. Patient plans to f/u with GI for further evaluation. Disposition - Clinical Impression Clinical Impression: Gastritis, Hematochezia - Patient ED Disposition Is Patient to be Admitted: No - Disposition Referrals: [facility] [Outside] Rich W[place],MD Rosa [Medical Doctor] - Disposition: Routine/Home Disposition Time: 13:56 Condition: FAIR Prescriptions: Pantoprazole Sodium [Protonix] 40 mg PO DAILY #7 ect Instructions: Gastritis (ED), Rectal Bleeding (DC) Forms: [facility] (Croatian)
[2017-12-01] MEDS ORDERED: Alum-Mag Hydrox-Simethicone Susp (30 mL) ONE (12:00)
[2017-12-01 12:10] LABS: BASO % 0.7 % (0.0-2.0); EOS % 0.3 % (0.0-4.0); HEMOGLOBIN 13.5 g/dL (12.0-18.0); LYMPH # 1.1 K/uL (1.0-4.3); LYMPH % 16.8 % (20.0-40.0); MEAN CELL VOLUME 90.8 fl (80.0-94.0); MEAN CORPUSCULAR HEMOGLOBIN 30.5 pg (27.0-31.0); MEAN CORPUSCULAR HGB CONC 33.6 g/dL (33.0-37.0); MEAN PLATELET VOLUME 6.9 fl (7.2-11.7); MONO # 0.4 K/uL (0.0-0.8); MONO % 6.4 % (0.0-10.0); NEUT % 75.8 % (50.0-75.0); NRBC % 0.1 % (0.0-0.0); RBC 4.41 Mil/uL (4.40-5.90); RED CELL DISTRIBUTION WIDTH 13.8 % (11.5-14.5); WHITE BLOOD COUNT 6.6 K/uL (4.8-10.8)
[2017-12-01 12:22] LABS: ALB/GLOB RATIO 1.5 (1.0-2.1); ALBUMIN 4.6 g/dL (3.5-5.0); ALT/SGPT 46 U/L (21-72); AST/SGOT 60 U/L (17-59); BLOOD UREA NITROGEN 8 mg/dl (9-20); CALCIUM 9.3 mg/dL (8.4-10.2); GFR AFRICAN-AMERICAN > 60; GFR NON-AFRICAN AMERICAN > 60; LIPASE 243 U/L (23-300)
[2017-12-01 13:33] LABS: SQUAMOUS EPITHIAL < 1 /hpf (0-5); URINE BACTERIA OCC (<OCC); URINE BILIRUBIN NEGATIVE (NEGATIVE); URINE BLOOD NEGATIVE (NEGATIVE); URINE CLARITY SLIGHTY-CLOUDY (Clear); URINE COLOR YELLOW (YELLOW); URINE GLUCOSE (UA) NEG (Normal); URINE LEUKOCYTE ESTERASE NEG Leu/uL (Negative); URINE NITRATE NEGATIVE (NEGATIVE); URINE PROTEIN 100 mg/dL (NEGATIVE); URINE UROBILINOGEN 0.2-1.0 mg/dL (0.2-1.0)
[2017-12-01 15:05] VITALS: BP 128/78; PULSE 78; RESP 19; TEMP 97.8
== END 2017-12-01 15:07 | disposition home or self-care (01) ==
LOC: H.ER 10:11
DX: K29.70 Gastritis, unspecified, without bleeding (principal); K92.1 Melena; F41.9 Anxiety disorder, unspecified
CPT/HCPCS: 80053; 81003; 83690; 85025; 99282; J7040

== ENCOUNTER 2017-12-04 07:23 | Emergency (ER) | payer MEDICAID ==
[2017-12-04 07:23] VITALS: BMI 24.3
[2017-12-04 07:47] VITALS: BP 134/84; PULSE 98; RESP 18; TEMP 97.5; O2SAT 100
--- NOTE | 2017-12-04 09:29 | ED PDOC ---
Lower Extremity Pain/Injury Time Seen by Provider: 12/04/17 07:37 Chief Complaint (Nursing): Lower Extremity Problem/Injury Chief Complaint (Provider): Lower Extremity Problem/Injury History Per: Patient History/Exam Limitations: no limitations Onset/Duration Of Symptoms: Days (x yesterday) Additional History Per: Prior Records Additional Complaint(s): Ferny is a 37 year old male who presents to the emergency via EMS department complaining of bilateral distal foot pain secondary to excessive walking. Denies trauma, falling, or fever. Patient been here in ER for same complaint. PMD: No Family Provider Past Medical History Reviewed: Historical Data, Nursing Documentation, Vital Signs Vital Signs: Last Vital Signs Temp 97.5 F L 12/04/17 07:45 Pulse 98 H 12/04/17 07:45 Resp 18 12/04/17 07:45 BP 134/84 12/04/17 07:45 Pulse Ox 100 12/04/17 07:45 - Medical History PMH: Anxiety, Back Problems, Fractures, Gastritis Denies: HIV, HTN, Chronic Kidney Disease, Seizures, Sexually Transmitted Disease - Family History Family History: States: Unknown Family Hx - Immunization History Hx Tetanus Toxoid Vaccination: No Hx Influenza Vaccination: No Hx Pneumococcal Vaccination: No - Home Medications Home Medications: Ambulatory Orders Medication Instructions Recorded Pantoprazole Sodium [Protonix] 40 mg PO DAILY #7 ect 12/01/17 Ibuprofen [Motrin Tab] 600 mg PO Q6 PRN #15 tab 12/04/17 - Allergies Allergies/Adverse Reactions: Allergies Allergy/AdvReac Type Severity Reaction Status Date / Time No Known Allergies Allergy Verified 11/27/17 03:21 Review of Systems ROS Statement: Except As Marked, All Systems Reviewed And Found Negative Constitutional: Negative for: Fever Musculoskeletal: Positive for: Foot Pain (Bilateral) Physical Exam - Reviewed Nursing Documentation Reviewed: Yes Vital Signs Reviewed: Yes - Physical Exam Appears: Positive for: Well, Non-toxic Head Exam: Positive for: ATRAUMATIC Eye Exam: Positive for: Normal appearance Respiratory: Negative for: Respiratory Distress Extremity: Positive for: Other (Bilateral Feet: Plantar warts with mild macerations, and fungal infection noted to digits) - ECG O2 Sat by Pulse Oximetry: 100 (RA) Pulse Ox Interpretation: Normal Medical Decision Making Medical Decision Making: podiatry consult performed. see adjoining note pt allowed to sleep in ED as appears homeless, awoke with stable gait and ready for discharge Scribe Attestation: Documented by Drew Mitchell, acting as a scribe for Julian Winston III, DO Provider Scribe Attestation: All medical record entries made by the Scribe were at my direction and personally dictated by me. I have reviewed the chart and agree that the record accurately reflects my personal performance of the history, physical exam, medical decision making, and the department course for this patient. I have also personally directed, reviewed, and agree with the discharge instructions and disposition. Disposition - Clinical Impression Clinical Impression: Blister of foot - Patient ED Disposition Is Patient to be Admitted: No Counseled Patient/Family Regarding: Diagnosis, Need For Followup - Disposition Referrals: Podiatry Clinic [Outside] Disposition: Transfer of Care Disposition Time: 11:30 Condition: STABLE Additional Instructions: Return to ER for any concern. Prescriptions: Ibuprofen [Motrin Tab] 600 mg PO Q6 PRN #15 tab PRN Reason: Pain, Moderate (4-7) Instructions: Arthralgia (ED), Blister (ED) Forms: [employer] (Sierra Leonean)
[2017-12-04] MEDS ORDERED: Povidone Iodine Oint 10% Foilpak UD ONE (12:35)
--- NOTE | 2017-12-04 18:54 | CP.PCM.CON ---
History of Present Illness - History of Present Illness History of Present Illness: 37 year old male seen in ED complaining of b/l foot pain. Patient states that he has done a great deal of walking over the last few days saying that he walked over 100 blocks yesterday alone. He says that as he walked his feet began to hurt and this morning her could barely put any pressure on them at all. He denies any sort of treatment to help alleviate his pain. He denies any further pedal complaints at this time. Is AAO x 3 and NAD at time of visit. Denies any recent N/V/F/C/CP/SOB/D/posterior calf pain when squeezed. Denies any purulence, erythema, or malodor from b/l feet. Denied any PMHx, current medications or known allergies Review of Systems - Review of Systems Review of Systems: ROS as per HPI Past Patient History - Infectious Disease Hx of Infectious Diseases: None - Tetanus Immunizations Tetanus Immunization: Unknown - Past Medical History & Family History Past Medical History?: No - Past Social History Smoking Status: Heavy Smoker > 10 Cigarettes Daily - CARDIAC Hx Hypertension: No - PULMONARY Hx Respiratory Disorders: No - NEUROLOGICAL Hx Seizures: No - HEENT Hx HEENT Problems: Yes Other/Comment: Hx R orbit Fx - RENAL Hx Chronic Kidney Disease: No - ENDOCRINE/METABOLIC Hx Endocrine Disorders: No - HEMATOLOGICAL/ONCOLOGICAL Hx Human Immunodeficiency Virus (HIV): No - INTEGUMENTARY Hx Dermatological Problems: No - MUSCULOSKELETAL/RHEUMATOLOGICAL Hx Fractures: Yes - GASTROINTESTINAL Hx Gastritis: Yes - GENITOURINARY/GYNECOLOGICAL Hx Sexually Transmitted Disorders: No - PSYCHIATRIC Hx Anxiety: Yes - SURGICAL HISTORY Other/Comment: r head/ehe surg 2007 - ANESTHESIA Hx Anesthesia: Yes Hx Anesthesia Reactions: No Meds Home Medications: Home Medication List Medication Instructions Recorded Confirmed Type Ibuprofen [Motrin Tab] 600 mg PO Q6 PRN #15 tab 12/04/17 Rx Allergies/Adverse Reactions: Allergies Allergy/AdvReac Type Severity Reaction Status Date / Time No Known Allergies Allergy Verified 11/27/17 03:21 Physical Exam - Constitutional Appears: Well, Non-toxic, No Acute Distress - Extremities Exam Additional comments: RLE focused exam: Vasc: DP/PT pulses palpable 2/4 b/l. Skin temperature warm to warm from proximal to distal. CFT < 3 seconds to all digits b/l. No edema noted b/l Neuro: Epicritic and protective sensation grossly intact b/l Derm: Multiple blisters of varying sizes seen to b/l plantar feet at distal forefoot and basim of various digits. Largest blister seen on distal forefoot of right foot. Left foot distal forefoot blister already broken and drained. No clinical signs of infection including erythema, malodor or purulent drainage. Otherwise, no open lesions, wounds, maceration, xerosis, abnormal pigmentation or abnormal growths noted b/l. Nails well manicured and normotrophic 1-10 b/l MSK: Severe POP to right distal, plantar forefoot blister. No POP to other blisters. No other gross deformities noted - Neurological Exam Neurological exam: Alert, Oriented x3 - Psychiatric Exam Psychiatric exam: Normal Affect, Normal Mood Results - Vital Signs Recent Vital Signs: Last Vital Signs Temp 97.5 F L 12/04/17 07:45 Pulse 98 H 12/04/17 07:45 Resp 18 12/04/17 07:45 BP 134/84 12/04/17 07:45 Pulse Ox 100 12/04/17 10:22 Assessment & Plan - Assessment and Plan (Free Text) Assessment: 37 year old male seen for painful blisters to b/l feet secondary to large quantities of walking over the last few days. Plan: Patient seen and evaluated at bedside Plan discussed with attending Dr. Martinez Afebrile All fluctuant blisters lanced with a sterile #11 blade without being deroofed and drained of all underlying serous fluid without incident Feet dressed with betadine, ABD, DSD Patient advised to remain off of feet as much as possible over next few days Patient to keep blisters clean and dry and to change dressings daily Patient advised to return to ED if any signs of infection appeared Patient to f/u in podiatry clinic in one weeks time - Date & Time Date: 12/04/17 Time: 19:11
== END 2017-12-04 12:56 | disposition home or self-care (01) ==
LOC: H.ER 07:23
DX: S90.821A Blister (nonthermal), right foot, initial encounter (principal); S90.822A Blister (nonthermal), left foot, initial encounter; Y92.89 Other specified places as the place of occurrence of the external cause; F41.9 Anxiety disorder, unspecified

== ENCOUNTER 2017-12-19 17:05 | Emergency (ER) | payer MEDICAID ==
[2017-12-19 17:05] VITALS: BMI 24.3
[2017-12-19 17:11] VITALS: BP 126/91; PULSE 88; RESP 16; TEMP 98; O2SAT 100
--- NOTE | 2017-12-19 17:39 | ED PDOC ---
HPI: Psych/Substance Abuse Time Seen by Provider: 12/19/17 17:38 Chief Complaint (Nursing): Alcohol Ingestion Chief Complaint (Provider): etoh/substance abuse History Per: Patient, EMS Additional Complaint(s): 37-year-old male presents to emergency department acutely intoxicated. Patient was [place] sleeping in a park and was brought in by ambulance. He admits to drinking alcohol. Patient offers no acute complaints. Past Medical History Reviewed: Historical Data, Nursing Documentation, Vital Signs Vital Signs: Last Vital Signs Temp 98.0 F 12/19/17 17:06 Pulse 88 12/19/17 17:06 Resp 16 12/19/17 17:06 BP 126/91 H 12/19/17 17:06 Pulse Ox 100 12/19/17 17:06 - Medical History PMH: Anxiety, Back Problems, Fractures, Gastritis - Family History Family History: States: No Known Family Hx - Social History Alcohol: > 2 Drinks/Day - Home Medications Home Medications: Ambulatory Orders Medication Instructions Recorded Pantoprazole Sodium [Protonix] 40 mg PO DAILY #7 ect 12/01/17 Ibuprofen [Motrin Tab] 600 mg PO Q6 PRN #15 tab 12/04/17 - Allergies Allergies/Adverse Reactions: Allergies Allergy/AdvReac Type Severity Reaction Status Date / Time No Known Allergies Allergy Verified 12/19/17 17:06 Review of Systems ROS Statement: Except As Marked, All Systems Reviewed And Found Negative Psych: Positive for: Other (etoh) Physical Exam - Reviewed Nursing Documentation Reviewed: Yes Vital Signs Reviewed: Yes - Physical Exam Appears: Positive for: Well, Non-toxic, No Acute Distress Skin: Negative for: Rash Eye Exam: Positive for: Normal appearance Cardiovascular/Chest: Positive for: Regular Rate, Rhythm Respiratory: Positive for: Normal Breath Sounds Neurologic/Psych: Positive for: Other (intoxicated, answers some questions appropriately) - ECG O2 Sat by Pulse Oximetry: 100 Pulse Ox Interpretation: Normal Medical Decision Making Medical Decision Makin37 year old intoxicated male Plan: AYO UDS Fingerstick BAL is 416 6:45 pm: patient got out of bed and walked to bathroom, has unsteady gait and is still intoxicated. Patient was escorted back to bed. Disposition - Clinical Impression Clinical Impression: Alcohol intoxication - Patient ED Disposition Is Patient to be Admitted: Transfer of Care - Disposition Disposition: Transfer of Care Disposition Time: 19:04 Condition: FAIR Forms: [employer] (Azeri) Patient Signed Over To: Marilu Chowdhury Handoff Comments: Signed out pending sobriety and final disposition
--- NOTE | 2017-12-20 00:46 | ED PDOC ---
- ECG O2 Sat by Pulse Oximetry: 100 - Progress ED Course And Treament: Case endorsed to mortgage or loan underwriter from [employer] pending clinical sobriety 20:00 Patient sleeping; no distress 21:30 Patient sleeping; no distress 23:00 Patient sleeping; no distress 12/20/17 1:00 Patient awake, alert, oriented x3. Ambulating steady gait. Stable for discharge Disposition - Clinical Impression Clinical Impression: Alcohol intoxication - POA Present On Arrival: None - Disposition Disposition: Routine/Home Disposition Time: 01:00 Condition: STABLE Instructions: Alcohol Abuse and Alcoholism (DC)
== END 2017-12-20 01:19 | disposition home or self-care (01) ==
LOC: H.ER 17:05
DX: F10.129 Alcohol abuse with intoxication, unspecified (principal); F41.9 Anxiety disorder, unspecified

== ENCOUNTER 2017-12-20 03:04 | Emergency (ER) | payer MEDICAID ==
[2017-12-20 03:04] VITALS: BMI 24.3
[2017-12-20 03:18] VITALS: BP 135/90; PULSE 85; RESP 18; TEMP 98.2; O2SAT 98
--- NOTE | 2017-12-20 03:34 | ED PDOC ---
HPI: Psych/Substance Abuse Time Seen by Provider: 12/20/17 03:20 Chief Complaint (Nursing): Alcohol Ingestion Chief Complaint (Provider): etoh History Per: Patient Additional Complaint(s): 37 y/o male self-presents for head injury. Patient states on his way to the train station he tripped and hit the back of his head and now feels dizzy. Denies LOC, vomiting, neck/back pain. Patient is awake, alert, oriented x3. Ambulating steady gait. Of note, patient discharged from ED 1.5 hours ago, known for bed-seeking behavior Past Medical History Reviewed: Historical Data, Nursing Documentation, Vital Signs Vital Signs: Last Vital Signs Temp 98.2 F 12/20/17 03:14 Pulse 85 12/20/17 03:14 Resp 18 12/20/17 03:14 BP 135/90 12/20/17 03:14 Pulse Ox 98 12/20/17 03:14 - Medical History PMH: Anxiety, Back Problems, Fractures, Gastritis Denies: HIV, HTN, Chronic Kidney Disease, Seizures, Sexually Transmitted Disease - Family History Family History: States: Unknown Family Hx - Immunization History Hx Tetanus Toxoid Vaccination: No Hx Influenza Vaccination: No Hx Pneumococcal Vaccination: No - Home Medications Home Medications: Ambulatory Orders Medication Instructions Recorded Pantoprazole Sodium [Protonix] 40 mg PO DAILY #7 ect 12/01/17 Ibuprofen [Motrin Tab] 600 mg PO Q6 PRN #15 tab 12/04/17 - Allergies Allergies/Adverse Reactions: Allergies Allergy/AdvReac Type Severity Reaction Status Date / Time No Known Allergies Allergy Verified 12/19/17 17:06 Review of Systems ROS Statement: Except As Marked, All Systems Reviewed And Found Negative Neurological: Positive for: Other (head injury) Physical Exam - Reviewed Nursing Documentation Reviewed: Yes Vital Signs Reviewed: Yes - Physical Exam Appears: Positive for: Well, Non-toxic, No Acute Distress Head Exam: Positive for: ATRAUMATIC, NORMAL INSPECTION, NORMOCEPHALIC Cardiovascular/Chest: Positive for: Regular Rate, Rhythm Respiratory: Positive for: Normal Breath Sounds Gastrointestinal/Abdominal: Positive for: Normal Exam Back: Positive for: Normal Inspection Extremity: Positive for: Normal ROM Neurologic/Psych: Positive for: Alert, Oriented - ECG O2 Sat by Pulse Oximetry: 98 - Progress ED Course And Treament: CT head EXAM: CT Head Without Intravenous Contrast CLINICAL HISTORY: 37 years old, male; Injury or trauma; Fall; Initial encounter; Blunt trauma ( contusions or hematomas); Additional info: Head injury TECHNIQUE: Axial computed tomography images of the head/brain without intravenous contrast. All CT scans at this facility use one or more dose reduction techniques, viz.: automated exposure control; ma/kV adjustment per patient size (including targeted exams where dose is matched to indication; i.e. head); or iterative reconstruction technique. Coronal and sagittal reformatted images were created and reviewed. COMPARISON: CT - HEAD W/O CONTRAST 2017-11-24 20:52 FINDINGS: Brain: Minimal atrophy. No intracranial hemorrhage. 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 No edema. Ventricles: No hydrocephalus. Bones/joints: No acute fracture. Postsurgical changes of frontal bone. Soft tissues: Small radiopaque densities along frontal scalp, stable. Sinuses: Scattered minimal to mild mucosal thickening. Mastoid air cells: No mastoid effusion. Orbits: Unremarkable as visualized. IMPRESSION: 1. No intracranial hemorrhage. 2. Incidental/non-acute findings are described above. Patient educated on findings, discharged with instructions to follow up PMD 2-3 days. Advised Tylenol/Ibuprofen PRN pain. Return precautions given. Disposition - Clinical Impression Clinical Impression: Head injury - Patient ED Disposition Is Patient to be Admitted: No Counseled Patient/Family Regarding: Studies Performed, Diagnosis, Need For Followup - Disposition Disposition: Routine/Home Disposition Time: 05:17 Condition: STABLE Instructions: Minor Head Injury
--- NOTE | 2017-12-20 05:13 | CT ---
EXAM: CT Head Without Intravenous Contrast CLINICAL HISTORY: 37 years old, male; Injury or trauma; Fall; Initial encounter; Blunt trauma (contusions or hematomas); Additional info: Head injury TECHNIQUE: Axial computed tomography images of the head/brain without intravenous contrast. All CT scans at this facility use one or more dose reduction techniques, viz.: automated exposure control; ma/kV adjustment per patient size (including targeted exams where dose is matched to indication; i.e. head); or iterative reconstruction technique. Coronal and sagittal reformatted images were created and reviewed. COMPARISON: CT - HEAD W/O CONTRAST 2017-11-24 20:52 FINDINGS: Brain: Minimal atrophy. No intracranial hemorrhage. 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 No edema. Ventricles: No hydrocephalus. Bones/joints: No acute fracture. Postsurgical changes of frontal bone. Soft tissues: Small radiopaque densities along frontal scalp, stable. Sinuses: Scattered minimal to mild mucosal thickening. Mastoid air cells: No mastoid effusion. Orbits: Unremarkable as visualized. IMPRESSION: 1. No intracranial hemorrhage. 2. Incidental/non-acute findings are described above.
== END 2017-12-20 05:24 | disposition home or self-care (01) ==
LOC: H.ER 03:04
DX: S09.90XA Unspecified injury of head, initial encounter (principal); W19.XXXA Unspecified fall, initial encounter; Y92.816 Subway car as the place of occurrence of the external cause; F41.9 Anxiety disorder, unspecified

== ENCOUNTER 2017-12-22 21:39 | Emergency (ER) | payer MEDICAID ==
[2017-12-22 21:40] VITALS: BMI 24.3
[2017-12-22 21:46] VITALS: O2SAT 98
--- NOTE | 2017-12-22 22:04 | ED PDOC ---
HPI: Psych/Substance Abuse Time Seen by Provider: 12/22/17 21:56 Chief Complaint (Nursing): Alcohol Ingestion Chief Complaint (Provider): intoxication ED Caveat: Intoxicated History Per: Patient History/Exam Limitations: intoxication Onset/Duration Of Symptoms: Days, Gradual Current Symptoms Are (Timing): Still Present Suicide/Self Injury Attempted (Context): None Modifying Factor(s): None Severity: Moderate Additional History Per: Prior Records Past Medical History Reviewed: Nursing Documentation, Vital Signs Vital Signs: Last Vital Signs Temp 97.7 F 12/22/17 21:43 Pulse 89 12/22/17 21:43 Resp 18 12/22/17 21:43 BP 166/107 H 12/22/17 21:43 Pulse Ox 98 12/22/17 21:43 - Medical History PMH: Anxiety, Back Problems, Fractures, Gastritis Denies: HIV, HTN, Chronic Kidney Disease, Seizures, Sexually Transmitted Disease - Family History Family History: States: Unknown Family Hx - Social History Alcohol: > 2 Drinks/Day - Immunization History Hx Tetanus Toxoid Vaccination: No Hx Influenza Vaccination: No Hx Pneumococcal Vaccination: No - Home Medications Home Medications: Ambulatory Orders Medication Instructions Recorded Pantoprazole Sodium [Protonix] 40 mg PO DAILY #7 ect 12/01/17 Ibuprofen [Motrin Tab] 600 mg PO Q6 PRN #15 tab 12/04/17 - Allergies Allergies/Adverse Reactions: Allergies Allergy/AdvReac Type Severity Reaction Status Date / Time No Known Allergies Allergy Verified 12/22/17 21:43 Review of Systems Review Of Systems: ROS cannot be obtained secondary to pt's inabilty to answer questions. Physical Exam - Reviewed Nursing Documentation Reviewed: Yes Vital Signs Reviewed: Yes - Physical Exam Appears: Negative for: Non-toxic Head Exam: Positive for: ATRAUMATIC Skin: Positive for: Normal Color Respiratory: Positive for: Normal Breath Sounds. Negative for: Crackles, Rales , Rhonchi, Stridor, Wheezing Gastrointestinal/Abdominal: Positive for: Normal Exam Neurologic/Psych: Negative for: Oriented, Motor/Sensory Deficits (due to intoxicated state) - Laboratory Results Result Diagrams: 12/22/17 22:35 - ECG O2 Sat by Pulse Oximetry: 98 Pulse Ox Interpretation: Normal - Progress ED Course And Treament: CMP and serum etOH level; Re-evaluation Time: 23:00 Condition: Re-examined, Improving,but remains with symptoms Medical Decision Making Medical Decision Making: etOH level 389 at 2205 Disposition - Clinical Impression Clinical Impression: Alcohol use, Alcohol intoxication, Intoxication - Patient ED Disposition Is Patient to be Admitted: Transfer of Care - Disposition Referrals: [facility] [Outside] [facility] Anonymous [Outside] Disposition: Transfer of Care Disposition Time: 23:42 Condition: STABLE Forms: [employer] (Hungarian) Patient Signed Over To: Claudia Le (Pending sobriety)
[2017-12-22 23:12] LABS: ALB/GLOB RATIO 1.3 (1.0-2.1); ALBUMIN 4.5 g/dL (3.5-5.0); ALT/SGPT 69 U/L (21-72); AST/SGOT 81 U/L (17-59); BLOOD UREA NITROGEN 8 mg/dl (9-20); CALCIUM 9.1 mg/dL (8.4-10.2); GFR AFRICAN-AMERICAN > 60; GFR NON-AFRICAN AMERICAN > 60
--- NOTE | 2017-12-22 23:33 | ED PDOC ---
- Laboratory Results Result Diagrams: 12/22/17 22:35 - ECG O2 Sat by Pulse Oximetry: 98 Medical Decision Making Medical Decision Making: Case was signed out scenario writer from DONNA Bailon pending sobriety. BAL is 389 11:35 pm: patient is asleep, arousable, vital signs stable. 1:30 am: patient is asleep, arousable, vital signs stable. 3:30 am: patient is asleep, arousable, vital signs stable. 5:30 am: patient is awake, alert, steady gait, stable for discharge. Disposition - Clinical Impression Clinical Impression: Alcohol use, Alcohol intoxication - POA Present On Arrival: None - Disposition Referrals: Alcoholics Anonymous [Outside] [facility] [Outside] Disposition: Routine/Home Disposition Time: 05:07 Condition: STABLE Instructions: Alcohol Abuse and Alcoholism (DC) Forms: [facility] (Irish)
[2017-12-23 05:26] VITALS: BP 117/67; PULSE 83; RESP 16; TEMP 98.9
== END 2017-12-23 06:00 | disposition home or self-care (01) ==
LOC: H.ER 21:39
DX: F10.129 Alcohol abuse with intoxication, unspecified (principal); F41.9 Anxiety disorder, unspecified

== ENCOUNTER 2017-12-29 07:48 | Emergency (ER) | payer MEDICAID ==
[2017-12-29 07:48] VITALS: BMI 24.3
[2017-12-29 09:15] LABS: BASO % 0.5 % (0.0-2.0); EOS % 0.3 % (0.0-4.0); HEMOGLOBIN 12.9 g/dL (12.0-18.0); LYMPH # 0.4 K/uL (1.0-4.3); LYMPH % 6.5 % (20.0-40.0); MEAN CELL VOLUME 95.5 fl (80.0-94.0); MEAN CORPUSCULAR HGB CONC 33.5 g/dL (33.0-37.0); MEAN PLATELET VOLUME 7.5 fl (7.2-11.7); MONO # 0.6 K/uL (0.0-0.8); MONO % 8.7 % (0.0-10.0); NEUT # 5.7 K/uL (1.8-7.0); NRBC % 0.1 % (0.0-0.0); RBC 4.03 Mil/uL (4.40-5.90); RED CELL DISTRIBUTION WIDTH 16.7 % (11.5-14.5); WHITE BLOOD COUNT 6.8 K/uL (4.8-10.8)
--- NOTE | 2017-12-29 09:18 | ED PDOC ---
HPI: Psych/Substance Abuse Time Seen by Provider: 12/29/17 08:37 Chief Complaint (Nursing): Abdominal Pain Chief Complaint (Provider): Abdominal Pain History Per: Patient History/Exam Limitations: no limitations Onset/Duration Of Symptoms: Sudden Onset Current Symptoms Are (Timing): Still Present Additional Complaint(s): 37 year old male with medical history of chronic back pain, presents to the emergency department for an evaluation of alcohol withdrawals including shaking , sweats, dizziness and vomiting. Patient stated he quit drinking 24 hours prior to arrival because he wanted to "change his life around after meeting a new person" and was given a film of Suboxone by an acquaintance. Denied any chest pain or shortness of breath. PMD: none provided Past Medical History Reviewed: Historical Data, Nursing Documentation, Vital Signs Vital Signs: Last Vital Signs Temp 97.9 F 12/29/17 08:10 Pulse 75 12/29/17 08:10 Resp 20 12/29/17 08:10 BP 114/83 12/29/17 08:10 Pulse Ox 98 12/29/17 08:10 - Medical History PMH: Anxiety, Back Problems, Fractures, Gastritis Denies: HIV, HTN, Chronic Kidney Disease, Seizures, Sexually Transmitted Disease - Surgical History Surgical History: Denies: No Surg Hx Other surgeries: fracture repairs - Family History Family History: States: Unknown Family Hx - Social History Current smoker - smoking cessation education provided: Yes Alcohol: > 2 Drinks/Day (6-8 beers) Drugs: Opiates (heroin) - Immunization History Hx Tetanus Toxoid Vaccination: No Hx Influenza Vaccination: No Hx Pneumococcal Vaccination: No - Home Medications Home Medications: Ambulatory Orders Medication Instructions Recorded Pantoprazole Sodium [Protonix] 40 mg PO DAILY #7 ect 12/01/17 Ibuprofen [Motrin Tab] 600 mg PO Q6 PRN #15 tab 12/04/17 - Allergies Allergies/Adverse Reactions: Allergies Allergy/AdvReac Type Severity Reaction Status Date / Time No Known Allergies Allergy Verified 12/22/17 21:43 Review of Systems ROS Statement: Except As Marked, All Systems Reviewed And Found Negative Constitutional: Positive for: Sweats Cardiovascular: Negative for: Chest Pain Respiratory: Negative for: Shortness of Breath Gastrointestinal: Positive for: Vomiting Neurological: Positive for: Dizziness Psych: Positive for: Withdrawal (shaking) Physical Exam - Reviewed Nursing Documentation Reviewed: Yes Vital Signs Reviewed: Yes - Physical Exam Appears: Positive for: Non-toxic, No Acute Distress Head Exam: Positive for: ATRAUMATIC, NORMAL INSPECTION, NORMOCEPHALIC Skin: Positive for: Normal Color Eye Exam: Positive for: Normal appearance, EOMI, PERRL ENT: Positive for: Normal ENT Inspection, Pharynx Is (within ) Neck: Positive for: Normal, Supple Cardiovascular/Chest: Positive for: Regular Rate, Rhythm, Chest Non Tender Respiratory: Positive for: Normal Breath Sounds. Negative for: Decreased Breath Sounds, Wheezing, Respiratory Distress Pulses-Dorsalis Pedis (L): 2+ Pulses-Dorsalis Pedis (R): 2+ Gastrointestinal/Abdominal: Positive for: Normal Exam, Soft. Negative for: Tenderness, Mass Extremity: Positive for: Normal ROM (upper/lower). Negative for: Pedal Edema ( bilateral), Other (tremendous) Neurologic/Psych: Positive for: Alert (x3), Oriented - Laboratory Results Result Diagrams: 12/29/17 09:00 12/29/17 09:00 - ECG O2 Sat by Pulse Oximetry: 98 (RA) Pulse Ox Interpretation: Normal Medical Decision Making Medical Decision Making: Initial Impression: Alcohol withdrawal Initial Plan: * Alcohol serum * CMP * Drug screen, urine * Urine dipstick * CBC Time: 916 --Patient continues to vomit actively. --Zofran and nS 1,000ml per 1,000mls/hr ordered. Scribe Attestation: Documented by Tika Rizzo, acting as a scribe for Loly Taylor MD. Provider Scribe Attestation: All medical record entries made by the Scribe were at my direction and personally dictated by me. I have reviewed the chart and agree that the record accurately reflects my personal performance of the history, physical exam, medical decision making, and the department course for this patient. I have also personally directed, reviewed, and agree with the discharge instructions and disposition. 1.00p - since being in the ER, patient has been stable. His VS remained normal. He is otherwise steady. Will discharge home. Disposition - Clinical Impression Clinical Impression: Alcohol dependence - Patient ED Disposition Is Patient to be Admitted: No Doctor Will See Patient In The: Office Counseled Patient/Family Regarding: Diagnosis, Need For Followup - Disposition Referrals: [facility] [Outside] Disposition: Routine/Home Disposition Time: 13:14 Condition: STABLE Instructions: Alcohol Abuse and Alcoholism (DC) Forms: [facility] (Omani) - POA Present On Arrival: None
[2017-12-29] MEDS ORDERED: Sodium Chloride 0.9% 1,000 ML IV STA (09:29)
[2017-12-29 09:31] LABS: BENZODIAZEPINES, UR NEGATIVE (NEGATIVE)
[2017-12-29 09:35] LABS: BARBITURATES, UR NEGATIVE (NEGATIVE); OPIATES, UR NEGATIVE (NEGATIVE); PHENCYCLIDINE, UR NEGATIVE (NEGATIVE)
[2017-12-29 09:36] LABS: ALB/GLOB RATIO 1.4 (1.0-2.1); ALBUMIN 4.4 g/dL (3.5-5.0); ALT/SGPT 72 U/L (21-72); AST/SGOT 80 U/L (17-59); BLOOD UREA NITROGEN 11 mg/dl (9-20); CALCIUM 9.3 mg/dL (8.4-10.2); GFR AFRICAN-AMERICAN > 60; GFR NON-AFRICAN AMERICAN > 60
[2017-12-29 10:46] LABS: LYMPHOCYTE 6 % (20-50); MONOCYTE 6 % (0-10); NEUTROPHIL 88 % (42-75); PLATELET ESTIMATE DECREASED (NORMAL); TOTAL CELLS COUNTED 100
[2017-12-29 10:47] LABS: ANISOCYTOSIS SLIGHT
[2017-12-29 10:48] LABS: LARGE PLATELETS PRESENT; MICROCYTOSIS SLIGHT; OVALOCYTES SLIGHT; PLATELET COUNT 110 K/uL (130-400)
[2017-12-29 11:03] VITALS: RESP 16
[2017-12-29 13:20] VITALS: BP 123/84; PULSE 60; TEMP 98.6; O2SAT 94
== END 2017-12-29 13:20 | disposition home or self-care (01) ==
LOC: H.ER 07:48
DX: F10.239 Alcohol dependence with withdrawal, unspecified (principal); F41.9 Anxiety disorder, unspecified; G89.29 Other chronic pain; F17.200 Nicotine dependence, unspecified, uncomplicated
CPT/HCPCS: 80053; 80320; 80324; 80345; 80346; 80349; 80353; 80358; 80361; 83992; 85025; 96361; 96374; 99284; J2405; J7040

== ENCOUNTER 2018-01-14 02:23 | Emergency (ER) | payer MEDICAID ==
[2018-01-14 02:23] VITALS: BMI 24.3
[2018-01-14 02:39] VITALS: O2SAT 100
[2018-01-14] MEDS ORDERED: THIAMINE IV ONE (03:15)
[2018-01-14] MEDS ORDERED: FOLIC ACID IV ONE (03:15)
[2018-01-14] MEDS ORDERED: [UNRECOGNIZED DRUG - OTHER] IV ONE (03:15)
[2018-01-14] MEDS ORDERED: MULTIVITAMIN IV ONE (03:15)
--- NOTE | 2018-01-14 03:21 | ED PDOC ---
HPI: Psych/Substance Abuse Time Seen by Provider: 01/14/18 03:18 Chief Complaint (Nursing): Psychiatric Evaluation History Per: Patient History/Exam Limitations: no limitations Onset/Duration Of Symptoms: Hrs Current Symptoms Are (Timing): Still Present Suicide/Self Injury Attempted (Context): None Modifying Factor(s): Alcohol Severity: Moderate Associated Symptoms: denies: Anger, Anxiety, Agitation, Depression, Paranoia, Suicidal Thoughts, Suicidal Plan Involuntary Hold By: None Additional Complaint(s): CC: alcohol withdrawal HPI: 37 y/o man w/ pmh of alcohol abuse presents for alcohol withdrawal. Patient reports he has not had a drink nor eaten in over 24 hours. Patient regularly drinks 18 beers throughout the day. The patient reports around 19:00 , he began to have vertigo, photophobia, nausea, and x7 episodes of non-bloody/ non-bilious vomit. Patient reports prior to coming to ED, patient had dry heave. Patient felt "wobbly" but denies fall, head trauma, or LOC. Patient reports tremors and visual hallucinations but denies tactile or auditory hallucinations. Patient denies chest pain, SOB, current nausea, vomiting, fever , or other substance use. PMD: none PMH: alcohol abuse meds: none allergies: none PSH: none Fam: denies SOC: sometimes smoker, drinks x18 beers/day, denies illegal drugs ROS: 12 points assessed and negative unless otherwise reported in HPI Past Medical History Reviewed: Historical Data, Nursing Documentation, Vital Signs Vital Signs: Last Vital Signs Temp 97.5 F L 01/14/18 02:35 Pulse 108 H 01/14/18 02:35 Resp 18 01/14/18 02:35 BP 136/91 H 01/14/18 02:35 Pulse Ox 100 01/14/18 02:35 - Medical History PMH: Anxiety, Back Problems, Fractures, Gastritis Denies: HIV, HTN, Chronic Kidney Disease, Seizures, Sexually Transmitted Disease - Family History Family History: States: Unknown Family Hx - Immunization History Hx Tetanus Toxoid Vaccination: No Hx Influenza Vaccination: No Hx Pneumococcal Vaccination: No - Home Medications Home Medications: Ambulatory Orders Medication Instructions Recorded Pantoprazole Sodium [Protonix] 40 mg PO DAILY #7 ect 12/01/17 Ibuprofen [Motrin Tab] 600 mg PO Q6 PRN #15 tab 12/04/17 - Allergies Allergies/Adverse Reactions: Allergies Allergy/AdvReac Type Severity Reaction Status Date / Time No Known Allergies Allergy Verified 01/14/18 02:33 Review of Systems ROS Statement: Except As Marked, All Systems Reviewed And Found Negative Constitutional: Negative for: Fever, Chills, Sweats, Weight loss Eyes: Negative for: Pain, Vision Change ENT: Negative for: Throat Pain Cardiovascular: Negative for: Chest Pain, Palpitations, Edema, Light Headedness Respiratory: Negative for: Cough, Shortness of Breath, Hemoptysis, SOB with Exertion, Pleuritic Pain, Wheezing Gastrointestinal: Positive for: Nausea, Vomiting. Negative for: Abdominal Pain , Diarrhea Genitourinary Male: Negative for: Dysuria Skin: Negative for: Rash Neurological: Positive for: Dizziness. Negative for: Altered Mental Status, Headache Psych: Positive for: Withdrawal Physical Exam - Reviewed Nursing Documentation Reviewed: Yes Vital Signs Reviewed: Yes - Physical Exam Appears: Positive for: Non-toxic, No Acute Distress Head Exam: Positive for: ATRAUMATIC, NORMAL INSPECTION, NORMOCEPHALIC Skin: Positive for: Normal Color, Warm, Dry. Negative for: Diaphoresis, Rash Eye Exam: Positive for: Normal appearance, EOMI, PERRL Neck: Positive for: Normal, Painless ROM, Supple Cardiovascular/Chest: Positive for: Chest Non Tender, Tachycardia. Negative for : Edema, Murmur Respiratory: Positive for: Normal Breath Sounds. Negative for: Decreased Breath Sounds, Accessory Muscle Use, Crackles, Rales, Rhonchi, Stridor, Wheezing , Respiratory Distress Pulses-Carotid (L): 2+ Pulses-Carotid (R): 2+ Pulses-Radial (L): 2+ Pulses-Radial (R): 2+ Gastrointestinal/Abdominal: Positive for: Normal Exam, Bowel Sounds, Soft. Negative for: Tenderness Extremity: Positive for: Normal ROM. Negative for: Tenderness, Pedal Edema, Calf Tenderness Neurologic/Psych: Positive for: Alert, manager rfid II-XII, Oriented. Negative for: Aphasia Comments: CIWA score 14 - Laboratory Results Result Diagrams: 01/14/18 03:29 01/14/18 03:29 - ECG O2 Sat by Pulse Oximetry: 100 Medical Decision Making Medical Decision Makin37 y/o man w/ pmh of alcohol abuse presents for alcohol withdrawal. - alcohol level: 247 - CBC: 7.2>15.6/44.8<255 - CMP: 147/4.3, 106/24, 11/0.9, glucose 109, AST 54, ALT, 45, alk phos 84 - blood glucose POC: 94 - D5/NS w/ thiamine, folic acid, and multivitamin @ 500mL/hr - re-evaluate - patient improved after receiving 1L banana bag - patient counseled to stay hydrated by drinking water and/or powerade/gatorade/ pedialyte - counseled patient to find and follow up w/ PMD Dispo: DC home, follow up w/ PMD, stay well hydrated Disposition - Clinical Impression Clinical Impression: Alcohol abuse with intoxication, Alcohol withdrawal - Patient ED Disposition Is Patient to be Admitted: No Discussed With DrOk: Brennen Hopper Counseled Patient/Family Regarding: Studies Performed, Diagnosis, Need For Followup - Disposition Referrals: [facility] [Outside] Disposition: Routine/Home Disposition Time: 05:09 Condition: IMPROVED Instructions: Alcohol Abuse and Alcoholism (DC) Forms: [facility] (Guatemalan) Print Language: AZERI - POA Present On Arrival: None
[2018-01-14] MEDS ORDERED: Multivitamin (MVI) 10 ML, Folic Acid 1 MG, Thiamine 100 MG in Dextrose 5%/0.45% NS 1,00... IV ONE (03:22)
[2018-01-14 03:39] LABS: BASO % 0.5 % (0.0-2.0); EOS # 0.1 K/uL (0.0-0.7); EOS % 1.4 % (0.0-4.0); HEMOGLOBIN 15.6 g/dL (12.0-18.0); LYMPH # 1.2 K/uL (1.0-4.3); LYMPH % 16.5 % (20.0-40.0); MEAN CELL VOLUME 95.3 fl (80.0-94.0); MEAN CORPUSCULAR HEMOGLOBIN 33.2 pg (27.0-31.0); MEAN CORPUSCULAR HGB CONC 34.8 g/dL (33.0-37.0); MEAN PLATELET VOLUME 6.6 fl (7.2-11.7); MONO # 0.4 K/uL (0.0-0.8); MONO % 5.6 % (0.0-10.0); NEUT # 5.5 K/uL (1.8-7.0); NRBC % 0.1 % (0.0-0.0); RBC 4.7 Mil/uL (4.40-5.90); RED CELL DISTRIBUTION WIDTH 16.4 % (11.5-14.5); WHITE BLOOD COUNT 7.2 K/uL (4.8-10.8)
[2018-01-14 03:47] LABS: ALB/GLOB RATIO 1.2 (1.0-2.1); ALBUMIN 4.8 g/dL (3.5-5.0); ALT/SGPT 45 U/L (21-72); AST/SGOT 54 U/L (17-59); BLOOD UREA NITROGEN 11 mg/dl (9-20); CALCIUM 9.1 mg/dL (8.4-10.2); GFR AFRICAN-AMERICAN > 60; GFR NON-AFRICAN AMERICAN > 60
[2018-01-14 06:56] VITALS: BP 120/95; PULSE 99; RESP 16; TEMP 97.9
== END 2018-01-14 05:35 | disposition home or self-care (01) ==
LOC: H.ER 02:23
DX: F10.239 Alcohol dependence with withdrawal, unspecified (principal); F41.9 Anxiety disorder, unspecified
CPT/HCPCS: 80053; 80320; 82948; 85025; 96374; 99283; J3411; J7042

== ENCOUNTER 2018-01-19 21:09 | Emergency (ER) | payer MEDICAID ==
[2018-01-19 21:09] VITALS: BMI 24.3
[2018-01-19 21:18] VITALS: RESP 16
--- NOTE | 2018-01-19 23:45 | ED PDOC ---
HPI: Psych/Substance Abuse Time Seen by Provider: 01/19/18 21:18 Chief Complaint (Nursing): Alcohol Ingestion Chief Complaint (Provider): Alcohol Ingestion History Per: Patient History/Exam Limitations: intoxication (alcohol) Onset/Duration Of Symptoms: Hrs (prior to arrival) Current Symptoms Are (Timing): Still Present Modifying Factor(s): Alcohol Additional Complaint(s): Ferny Allred is a 37 year old male with an unknown past medical history, who was brought to the ER by EMS for complaints of alcohol intoxication. [facility] reports that patient admits to drinking an unknown amount of alcohol, mostly beer, prior to arrival. History and review of systems were unobtainable due to patient's alcohol intoxication. Otherwise: (-) apparent trauma, (-) fever, (-) headache, (-) dyspnea, (-) vomiting (+) slurred speech. PMD: none provided Past Medical History Reviewed: Historical Data, Nursing Documentation, Vital Signs Vital Signs: Last Vital Signs Temp 97.3 F L 01/19/18 21:16 Pulse 86 01/19/18 21:16 Resp 16 01/19/18 21:16 BP 122/81 01/19/18 21:16 Pulse Ox 97 01/19/18 21:16 - Medical History PMH: Anxiety, Back Problems, Fractures, Gastritis Denies: HIV, HTN, Chronic Kidney Disease, Seizures, Sexually Transmitted Disease - Surgical History Other surgeries: unable to obtain - Family History Family History: States: Unknown Family Hx - Home Medications Home Medications: Ambulatory Orders Medication Instructions Recorded Pantoprazole Sodium [Protonix] 40 mg PO DAILY #7 ect 12/01/17 Ibuprofen [Motrin Tab] 600 mg PO Q6 PRN #15 tab 12/04/17 - Allergies Allergies/Adverse Reactions: Allergies Allergy/AdvReac Type Severity Reaction Status Date / Time No Known Allergies Allergy Verified 01/19/18 21:16 Review of Systems ROS Statement: Except As Marked, All Systems Reviewed And Found Negative Review Of Systems: ROS cannot be obtained secondary to pt's inabilty to answer questions. (patient is intoxicated) Physical Exam - Reviewed Nursing Documentation Reviewed: Yes Vital Signs Reviewed: Yes - Physical Exam Comments: GENERAL APPEARANCE: Patient is somnolent, responsive to painful stimuli, and in no acute distress. SKIN: Warm, dry; (-) cyanosis HEAD: (-) scalp swelling, (-) scalp tenderness. EYES: (+) conjunctival injection, (-) scleral icterus, (-) nystagmus. ENMT: Mucous membranes moist. Airway patent: (-) stridor (-) drooling NECK: Supple, FROM (-) tenderness, (-) stiffness, (-) lymphadenopathy. CHEST AND RESPIRATORY: (-) rales, (-) rhonchi, (-) wheezes; breath sounds equal. Breathing unlabored. ABDOMEN: Soft, (-) distention, (-) tenderness, (-) guarding. NEURO AND PSYCH: Mental status as above. Affect: Intoxicated. Pupils equal and reactive; EOMI; (-) facial asymmetry; tongue and uvula midline. Slurred speech. - ECG O2 Sat by Pulse Oximetry: 97 (RA) Pulse Ox Interpretation: Normal Medical Decision Making Medical Decision Making: Time: 22:30 Impression: Alcohol Intoxication/Abuse Plan: --Alcohol Serum --Accucheck 00:00 -Alcohol: 346 02:30 -Accucheck: 153 03:00 Patient sleeping in ED stretcher comfortably. No acute distress noted. 04:30 Patient requesting food at this time. Patient awake, alert, and oriented in ED but refusing to ambulate. Lungs clear to auscultation, cardiac RRR, abdomen soft, non-tender, repeat neuro exam shows no focal findings. 0530 Patient awake, alert, and oriented x3. Ambulatory in ED with steady, unassisted gait. On re-evaluation, patient reports improvement of symptoms. Lungs clear to auscultation, cardiac RRR, abdomen soft, non-tender, repeat neuro exam shows no focal findings. VSS. Lab results reviewed,Diagnostic results d/w the patient in great detail. Diagnosis of alcohol intoxication d/w the patient. Based on history, exam and diagnostic results, plan will be for outpatient follow up. Patient instructed to follow-up with pmd / referral provided / the clinic in 1- 2 days without fail. Return to the emergency room at any time for any new or worsening symptoms. Patient states he fully agrees with and understands discharge instructions. States that he agrees with the plan and disposition. Verbalized and repeated discharge instructions and plan. I have given the patient opportunity to ask any additional questions. Scribe Attestation: Documented by Gabi Mcintosh acting as a scribe for Mara Euceda MD Scribe Attestation: All medical record entries made by the Scribe were at my direction and personally dictated by me. I have reviewed the chart and agree that the record accurately reflects my personal performance of the history, physical exam, medical decision making, and the department course for this patient. I have also personally directed, reviewed, and agree with the discharge instructions and disposition. Disposition - Clinical Impression Clinical Impression: Alcohol intoxication - Patient ED Disposition Is Patient to be Admitted: No Counseled Patient/Family Regarding: Diagnosis, Need For Followup - Disposition Referrals: [facility] [Provider Group] Disposition: Routine/Home Disposition Time: 05:27 Condition: STABLE Instructions: Alcohol Abuse and Alcoholism (DC) Forms: [facility] (Palauan) Print Language: ROMANSH - POA Present On Arrival: None
[2018-01-20 05:14] VITALS: BP 124/83; PULSE 88; TEMP 97.8
[2018-01-20 05:30] VITALS: O2SAT 97
== END 2018-01-20 05:40 | disposition home or self-care (01) ==
LOC: H.ER 21:09
DX: F10.129 Alcohol abuse with intoxication, unspecified (principal); F41.9 Anxiety disorder, unspecified

== ENCOUNTER 2018-01-21 17:21 | Emergency (ER) | payer MEDICAID ==
[2018-01-21 17:21] VITALS: BMI 24.3
--- NOTE | 2018-01-21 18:22 | ED PDOC ---
HPI: Psych/Substance Abuse Chief Complaint (Provider): Alcohol Intoxication History/Exam Limitations: no limitations Onset/Duration Of Symptoms: Hrs Current Symptoms Are (Timing): Still Present Suicide/Self Injury Attempted (Context): None Modifying Factor(s): Alcohol Involuntary Hold By: None Additional Complaint(s): 37 year old male is brought into the emergency department for alcohol intoxication. As per EMS, the patient was in a [facility] but had unsteady gait and so they were called. Patient offers no medical complaints. <Bruce Nicholson - Last Filed: 01/21/18 23:46> <Danae Levy PA-C - Last Filed: 01/22/18 05:26> Time Seen by Provider: 01/21/18 17:35 Chief Complaint (Nursing): Alcohol Ingestion Past Medical History Reviewed: Historical Data, Nursing Documentation, Vital Signs Vital Signs: Last Vital Signs Temp 97.1 F L 01/21/18 17:28 Pulse 82 01/21/18 17:46 Resp 82 H 01/21/18 17:28 BP 134/85 01/21/18 17:28 Pulse Ox 98 01/21/18 17:28 - Medical History PMH: Anxiety, Back Problems, Fractures, Gastritis Denies: HIV, HTN, Chronic Kidney Disease, Seizures, Sexually Transmitted Disease - Family History Family History: States: Unknown Family Hx - Immunization History Hx Tetanus Toxoid Vaccination: No Hx Influenza Vaccination: No Hx Pneumococcal Vaccination: No <Bruce Nicholson - Last Filed: 01/21/18 23:46> Vital Signs: Last Vital Signs Temp 98 F 01/21/18 22:02 Pulse 88 01/21/18 22:02 Resp 18 01/21/18 22:02 BP 118/70 01/21/18 22:02 Pulse Ox 98 01/21/18 23:48 <Danae Levy PA-C - Last Filed: 01/22/18 05:26> - Home Medications Home Medications: Ambulatory Orders Medication Instructions Recorded Pantoprazole Sodium [Protonix] 40 mg PO DAILY #7 ect 12/01/17 Ibuprofen [Motrin Tab] 600 mg PO Q6 PRN #15 tab 12/04/17 - Allergies Allergies/Adverse Reactions: Allergies Allergy/AdvReac Type Severity Reaction Status Date / Time No Known Allergies Allergy Verified 01/21/18 17:43 Review of Systems ROS Statement: Except As Marked, All Systems Reviewed And Found Negative Constitutional: Positive for: Other (alcohol intoxication) <Bruce Nicholson Bryan Luciano Last Filed: 01/21/18 23:46> Physical Exam - Reviewed Nursing Documentation Reviewed: Yes Vital Signs Reviewed: Yes - Physical Exam Appears: Positive for: Non-toxic, No Acute Distress (slurred speech; alcohol on breath) Head Exam: Positive for: ATRAUMATIC, NORMAL INSPECTION, NORMOCEPHALIC Eye Exam: Positive for: Normal appearance, EOMI, PERRL Cardiovascular/Chest: Positive for: Regular Rate, Rhythm, Chest Non Tender. Negative for: Tachycardia Respiratory: Positive for: Normal Breath Sounds. Negative for: Wheezing, Respiratory Distress Neurologic/Psych: Positive for: Alert, Oriented <Bruce Nicholson Bryan Luciano Last Filed: 01/21/18 23:46> - ECG O2 Sat by Pulse Oximetry: 98 (RA) Pulse Ox Interpretation: Normal - Progress ED Course And Treament: 1805 Sleeping comfortably. No distress. 1999 Repeat FSBS: 89 Seen moving around in bed sleeping comfortably. 2210 No distress. 2348 Still sleeping. Easily arousable. Offers no complaints. <Bruce Nicholson Bryan - Last Filed: 01/21/18 23:46> Medical Decision Making Medical Decision Makin Initial Impression 37 y/o male presenting with alcohol intoxication Initial Plan: * Alcohol Serum * Accucheck * Reevaluation Documented by Mireya Rebolledo acting as a scribe for Bruce Nicholson PA-C. All medical record entries made by the Scribe were at my direction and personally dictated by me. I have reviewed the chart and agree that the record accurately reflects my personal performance of the history, physical exam, medical decision making, and the department course for this patient. I have also personally directed, reviewed, and agree with the discharge instructions and disposition. <Bruce Nicholson - Last Filed: 01/21/18 23:46> Medical Decision Making: Case endorsed to me by DONNA Nicholson at 0000 pending sobriety. 0200 Patient is sleeping comfortably in no acute distress. 0500 Patient is sleeping, arouses easily, has no complaints at this time. FS 79. Patient is speaking in full sentences, no slurred speech, no tremors noted. Patient able to stand up and ambulate with a steady gait. Patient is stable for discharge. <Danae Levy PA-C - Last Filed: 01/22/18 05:26> Disposition - Patient ED Disposition Is Patient to be Admitted: Transfer of Care (Signed out to Cam TEAGUE pending sobriety.) - Disposition Disposition Time: 00:00 <Bruce Nicholson - Last Filed: 01/21/18 23:46> - Disposition Disposition: Routine/Home (at 0500 patient is sober and is safe for discharge) <Danae Levy PA-C - Last Filed: 01/22/18 05:26> - Clinical Impression Clinical Impression: Alcohol intoxication - Disposition Referrals: [facility] [Outside] Condition: STABLE Instructions: Alcohol Abuse and Alcoholism (DC) Forms: [facility] (Malaysian) - PA / WIRE HARNESS DESIGN ENGINEER / Resident Statement MD/DO has reviewed & agrees with the documentation as recorded. <Danae Levy PA-C - Last Filed: 01/22/18 05:26>
[2018-01-21 22:03] VITALS: BP 118/70; PULSE 88; RESP 18; TEMP 98
[2018-01-21 23:49] VITALS: O2SAT 98
== END 2018-01-22 05:28 | disposition home or self-care (01) ==
LOC: H.ER 17:21
DX: F10.129 Alcohol abuse with intoxication, unspecified (principal); F41.9 Anxiety disorder, unspecified

== ENCOUNTER 2018-01-23 22:03 | Emergency (ER) | payer MEDICAID ==
[2018-01-23 22:03] VITALS: BMI 24.3
[2018-01-23 22:09] VITALS: RESP 16; TEMP 98
--- NOTE | 2018-01-23 23:14 | ED PDOC ---
HPI: Psych/Substance Abuse Time Seen by Provider: 01/23/18 22:25 Chief Complaint (Nursing): Alcohol Ingestion Chief Complaint (Provider): etoh History Per: EMS Additional Complaint(s): 37 y/o male brought in by EMS for alcohol intoxication. Patient was kicked out of homeless [facility]term for drinking. HPI slightly limited due to patient's current state of intoxication. Past Medical History Reviewed: Historical Data, Nursing Documentation, Vital Signs Vital Signs: Last Vital Signs Temp 98.0 F 01/23/18 22:08 Pulse 114 H 01/23/18 22:08 Resp 16 01/23/18 22:08 BP 142/73 01/23/18 22:08 Pulse Ox 97 01/23/18 22:08 - Medical History PMH: Anxiety, Back Problems, Fractures, Gastritis Denies: HIV, HTN, Chronic Kidney Disease, Seizures, Sexually Transmitted Disease - Family History Family History: States: Unknown Family Hx - Immunization History Hx Tetanus Toxoid Vaccination: No Hx Influenza Vaccination: No Hx Pneumococcal Vaccination: No - Home Medications Home Medications: Ambulatory Orders Medication Instructions Recorded Pantoprazole Sodium [Protonix] 40 mg PO DAILY #7 ect 12/01/17 Ibuprofen [Motrin Tab] 600 mg PO Q6 PRN #15 tab 12/04/17 - Allergies Allergies/Adverse Reactions: Allergies Allergy/AdvReac Type Severity Reaction Status Date / Time No Known Allergies Allergy Verified 01/21/18 17:43 Review of Systems Review Of Systems: ROS cannot be obtained secondary to pt's inabilty to answer questions. Physical Exam - Reviewed Nursing Documentation Reviewed: Yes Vital Signs Reviewed: Yes - Physical Exam Appears: Positive for: Well, Non-toxic, No Acute Distress Head Exam: Positive for: ATRAUMATIC, NORMAL INSPECTION, NORMOCEPHALIC Skin: Positive for: Normal Color Eye Exam: Positive for: Normal appearance ENT: Positive for: Normal ENT Inspection Cardiovascular/Chest: Positive for: Regular Rate, Rhythm Respiratory: Positive for: Normal Breath Sounds Extremity: Positive for: Normal ROM Neurologic/Psych: Positive for: Alert (responds to painful stimuli) - ECG O2 Sat by Pulse Oximetry: 97 - Progress ED Course And Treament: accucheck, alcohol 6:00 patient awake, alert, oriented x3. Ambulating steady gait. Stable for discharge Disposition - Clinical Impression Clinical Impression: Alcohol abuse with intoxication - Patient ED Disposition Is Patient to be Admitted: No Counseled Patient/Family Regarding: Studies Performed, Diagnosis, Need For Followup - Disposition Disposition: Routine/Home Disposition Time: 06:00 Condition: STABLE Instructions: Alcohol Abuse and Alcoholism (DC) Forms: [employer] (Ukrainian)
[2018-01-24 05:51] VITALS: BP 114/68; PULSE 72
[2018-01-24 05:59] VITALS: O2SAT 97
== END 2018-01-24 06:45 | disposition home or self-care (01) ==
LOC: H.ER 22:03
DX: F10.129 Alcohol abuse with intoxication, unspecified (principal); F41.9 Anxiety disorder, unspecified

== ENCOUNTER 2018-01-26 21:04 | Emergency (ER) | payer MEDICAID ==
[2018-01-26 21:04] VITALS: BMI 24.3
--- NOTE | 2018-01-26 23:38 | ED PDOC ---
HPI: Psych/Substance Abuse Time Seen by Provider: 01/26/18 21:31 Chief Complaint (Nursing): Alcohol Ingestion Chief Complaint (Provider): Alcohol Ingestion History Per: Patient History/Exam Limitations: no limitations Additional Complaint(s): 37 year old male presents to the emergency department for public intoxication. Denies any medical complaints. Past Medical History Reviewed: Historical Data, Nursing Documentation, Vital Signs Vital Signs: Last Vital Signs Temp 98.2 F 01/26/18 21:22 Pulse 118 H 01/26/18 21:22 Resp 18 01/26/18 21:22 BP 123/69 01/26/18 21:22 Pulse Ox 97 01/26/18 21:22 - Medical History PMH: Anxiety, Back Problems, Fractures, Gastritis Denies: HIV, HTN, Chronic Kidney Disease, Seizures, Sexually Transmitted Disease - Surgical History Surgical History: No Surg Hx - Family History Family History: States: Unknown Family Hx - Immunization History Hx Tetanus Toxoid Vaccination: No Hx Influenza Vaccination: No Hx Pneumococcal Vaccination: No - Allergies Allergies/Adverse Reactions: Allergies Allergy/AdvReac Type Severity Reaction Status Date / Time No Known Allergies Allergy Verified 01/26/18 22:21 Review of Systems ROS Statement: Except As Marked, All Systems Reviewed And Found Negative (As per HPI, otherwise negative) Physical Exam - Reviewed Nursing Documentation Reviewed: Yes Vital Signs Reviewed: Yes - Physical Exam Appears: Positive for: No Acute Distress Head Exam: Positive for: NORMAL INSPECTION Skin: Positive for: Normal Color, Warm, Dry Cardiovascular/Chest: Positive for: Regular Rate, Rhythm. Negative for: Murmur Respiratory: Positive for: Normal Breath Sounds. Negative for: Accessory Muscle Use, Respiratory Distress Gastrointestinal/Abdominal: Positive for: Normal Exam, Soft. Negative for: Tenderness Extremity: Positive for: Normal ROM. Negative for: Pedal Edema Neurologic/Psych: Positive for: Alert, Oriented (x3) - ECG O2 Sat by Pulse Oximetry: 97 (RA) Pulse Ox Interpretation: Normal Medical Decision Making Medical Decision Making: Time: 2130 Initial Impression: Public intoxication Time: 552 --Patient is clinically sober and medically stable for discharge. Clinical impression: Alcohol ingestion Scribe Attestation: Documented by Tomasa Mclain acting as a scribe for Brennen Hopper MD. Scribe Attestation: All medical record entries made by the Scribe were at my direction and personally dictated by me. I have reviewed the chart and agree that the record accurately reflects my personal performance of the history, physical exam, medical decision making, and the department course for this patient. I have also personally directed, reviewed, and agree with the discharge instructions and disposition. Disposition - Clinical Impression Clinical Impression: Alcohol intoxication - Patient ED Disposition Is Patient to be Admitted: No - Disposition Disposition: Routine/Home Disposition Time: 06:00 Condition: STABLE Forms: [employer] (Singaporean)
[2018-01-27 05:55] VITALS: BP 123/69; PULSE 118; RESP 18; TEMP 98.2; O2SAT 97
== END 2018-01-27 06:04 | disposition home or self-care (01) ==
LOC: H.ER 21:04
DX: F10.129 Alcohol abuse with intoxication, unspecified (principal); F41.9 Anxiety disorder, unspecified

== ENCOUNTER 2018-02-03 02:41 | Emergency (ER) | payer MEDICAID ==
[2018-02-03 02:41] VITALS: BMI 24.3
[2018-02-03 06:29] VITALS: BP 113/66; PULSE 81; RESP 16; TEMP 98.1; O2SAT 95
--- NOTE | 2018-02-03 07:30 | ED PDOC ---
HPI: Psych/Substance Abuse Time Seen by Provider: 02/03/18 02:47 Chief Complaint (Nursing): Alcohol Ingestion Chief Complaint (Provider): Alcohol Ingestion ED Caveat: Intoxicated History/Exam Limitations: intoxication Current Symptoms Are (Timing): Still Present Modifying Factor(s): Alcohol Additional Complaint(s): 37yo male, brought to ER by EMS for evaluation as patient was noted to be publicly intoxicated. Patient is well known to provider and facility for multiple presentations with similar complaint. A full HPI and ROS is unavailable due to patient's intoxicated state. Past Medical History Reviewed: Historical Data, Nursing Documentation, Vital Signs Vital Signs: Last Vital Signs Temp 98.1 F 02/03/18 06:28 Pulse 81 02/03/18 06:28 Resp 16 02/03/18 06:28 BP 113/66 02/03/18 06:28 Pulse Ox 95 02/03/18 06:28 - Medical History PMH: Anxiety, Back Problems, Fractures, Gastritis Denies: HIV, HTN, Chronic Kidney Disease, Seizures, Sexually Transmitted Disease - Surgical History Surgical History: No Surg Hx - Family History Family History: States: Unknown Family Hx - Social History Current smoker - smoking cessation education provided: Yes Alcohol: < 2 Drinks/Day Drugs: Other - Immunization History Hx Tetanus Toxoid Vaccination: No Hx Influenza Vaccination: No Hx Pneumococcal Vaccination: No - Allergies Allergies/Adverse Reactions: Allergies Allergy/AdvReac Type Severity Reaction Status Date / Time No Known Allergies Allergy Verified 01/26/18 22:21 Review of Systems Review Of Systems: ROS cannot be obtained secondary to pt's inabilty to answer questions. (intoxicated) Physical Exam - Physical Exam Appears: Positive for: No Acute Distress Head Exam: Positive for: ATRAUMATIC, NORMAL INSPECTION, NORMOCEPHALIC Neck: Positive for: Supple Cardiovascular/Chest: Positive for: Regular Rate, Rhythm Respiratory: Positive for: Normal Breath Sounds Neurologic/Psych: Positive for: Gait (unsteady), Other (slurred speech) - ECG O2 Sat by Pulse Oximetry: 95 (RA) Pulse Ox Interpretation: Normal Medical Decision Making Medical Decision Making: Initial Impression: 37 years old intoxicated male. Initial Plan: --Drug Screen, Urine --Glucose POC Time: 6:29 Patient became sober and stable for discharge. Scribe Attestation: Documented by Kasia Epstein, acting as a scribe for Brennen Hopper MD. Provider Scribe Attestation: All medical record entries made by the Scribe were at my direction and personally dictated by me. I have reviewed the chart and agree that the record accurately reflects my personal performance of the history, physical exam, medical decision making, and the department course for this patient. I have also personally directed, reviewed, and agree with the discharge instructions and disposition. Disposition - Clinical Impression Clinical Impression: Alcohol intoxication - Disposition Disposition: Routine/Home Disposition Time: 06:29 Condition: STABLE Instructions: Alcohol Abuse and Alcoholism (DC) Forms: [employer] (Palestinian)
== END 2018-02-03 07:00 | disposition home or self-care (01) ==
LOC: H.ER 02:41
DX: F10.129 Alcohol abuse with intoxication, unspecified (principal); F41.9 Anxiety disorder, unspecified

== ENCOUNTER 2018-02-04 01:30 | Emergency (ER) | payer MEDICAID ==
[2018-02-04 01:30] VITALS: BMI 24.3
[2018-02-04 01:38] VITALS: BP 133/87; PULSE 81; RESP 16; TEMP 97.5; O2SAT 100
--- NOTE | 2018-02-04 02:06 | ED PDOC ---
HPI: Psych/Substance Abuse Time Seen by Provider: 02/04/18 01:32 Chief Complaint (Nursing): Alcohol Ingestion Chief Complaint (Provider): Alcohol ingestion ED Caveat: Intoxicated History Per: EMS History/Exam Limitations: intoxication Modifying Factor(s): Alcohol Additional Complaint(s): 37yo male, brought to ER by EMS for evaluation as he was found publicly intoxicated. Patient is well known to provider and ER for multiple visits with similar presentation. Patient has no medical complaints. Past Medical History Reviewed: Historical Data, Nursing Documentation, Vital Signs Vital Signs: Last Vital Signs Temp 97.5 F L 02/04/18 01:34 Pulse 81 02/04/18 01:34 Resp 16 02/04/18 01:34 BP 133/87 02/04/18 01:34 Pulse Ox 100 02/04/18 01:34 - Medical History PMH: Anxiety, Back Problems, Fractures, Gastritis Denies: HIV, HTN, Chronic Kidney Disease, Seizures, Sexually Transmitted Disease - Family History Family History: States: Unknown Family Hx - Immunization History Hx Tetanus Toxoid Vaccination: No Hx Influenza Vaccination: No Hx Pneumococcal Vaccination: No - Allergies Allergies/Adverse Reactions: Allergies Allergy/AdvReac Type Severity Reaction Status Date / Time No Known Allergies Allergy Verified 02/04/18 01:34 Review of Systems ROS Statement: Except As Marked, All Systems Reviewed And Found Negative Psych: Positive for: Other (alcohol intoxication) Physical Exam - Reviewed Nursing Documentation Reviewed: Yes Vital Signs Reviewed: Yes - Physical Exam Appears: Positive for: Non-toxic, No Acute Distress Head Exam: Positive for: ATRAUMATIC, NORMAL INSPECTION, NORMOCEPHALIC Skin: Positive for: Normal Color, Warm Eye Exam: Positive for: Normal appearance Neck: Positive for: Normal, Supple Cardiovascular/Chest: Positive for: Regular Rate, Rhythm Respiratory: Positive for: Normal Breath Sounds. Negative for: Respiratory Distress Gastrointestinal/Abdominal: Positive for: Normal Exam, Soft Extremity: Positive for: Normal ROM. Negative for: Deformity Neurologic/Psych: Positive for: Alert, Oriented, Gait (unsteady), Other ( slurred speech) - ECG O2 Sat by Pulse Oximetry: 100 (RA) Pulse Ox Interpretation: Normal Medical Decision Making Medical Decision Making: Impression: Alcohol intoxication Plan: -- Patient pending clinical sobriety Time: 0607 Patient awake, alert, oriented x 3 and able to ambulate in ER with steady gait. Stable for discharge home. Scribe Attestation: Documented by Lucia Edouard acting as a scribe for Brennen Hopper MD. Provider Attestation: All medical record entries made by the Scribe were at my direction and personally dictated by me. I have reviewed the chart and agree that the record accurately reflects my personal performance of the history, physical exam, medical decision making, and the department course for this patient. I have also personally directed, reviewed, and agree with the discharge instructions and disposition. Disposition - Clinical Impression Clinical Impression: Alcohol intoxication - Patient ED Disposition Is Patient to be Admitted: No - Disposition Disposition: Routine/Home Disposition Time: 06:07 Condition: STABLE Forms: [employer] (Azerbaijani)
== END 2018-02-04 06:27 | disposition home or self-care (01) ==
LOC: H.ER 01:30
DX: F10.129 Alcohol abuse with intoxication, unspecified (principal); F41.9 Anxiety disorder, unspecified

== ENCOUNTER 2018-02-05 00:35 | Emergency (ER) | payer MEDICAID ==
[2018-02-05 00:35] VITALS: BMI 24.3
[2018-02-05 00:38] VITALS: RESP 16
--- NOTE | 2018-02-05 01:44 | ED PDOC ---
HPI: Psych/Substance Abuse Time Seen by Provider: 02/05/18 00:41 Chief Complaint (Nursing): Alcohol Ingestion Chief Complaint (Provider): Alcohol Ingestion History Per: Patient Current Symptoms Are (Timing): Still Present Suicide/Self Injury Attempted (Context): None Modifying Factor(s): Alcohol Additional Complaint(s): 37 year old male brought in by EMS presents to ED due to alcohol intoxication and has a history of alcohol abuse. Patient noted to have requested food when in triage. Denies having any medical complaints. PCP: None Past Medical History Reviewed: Historical Data, Nursing Documentation, Vital Signs Vital Signs: Last Vital Signs Temp 98.1 F 02/05/18 00:37 Pulse 84 02/05/18 00:37 Resp 16 02/05/18 00:37 BP 117/79 02/05/18 00:37 Pulse Ox 98 02/05/18 00:37 - Medical History PMH: Anxiety, Back Problems, Fractures, Gastritis Denies: HIV, HTN, Chronic Kidney Disease, Seizures, Sexually Transmitted Disease - Family History Family History: States: Unknown Family Hx - Social History Alcohol: Other - Immunization History Hx Tetanus Toxoid Vaccination: No Hx Influenza Vaccination: No Hx Pneumococcal Vaccination: No - Allergies Allergies/Adverse Reactions: Allergies Allergy/AdvReac Type Severity Reaction Status Date / Time No Known Allergies Allergy Verified 02/04/18 01:34 Review of Systems ROS Statement: Except As Marked, All Systems Reviewed And Found Negative ( Denies any medical complaints) Physical Exam - Reviewed Nursing Documentation Reviewed: Yes Vital Signs Reviewed: Yes - Physical Exam Appears: Positive for: Non-toxic, No Acute Distress Head Exam: Positive for: ATRAUMATIC, NORMOCEPHALIC Skin: Positive for: Normal Color, Warm, Dry Eye Exam: Positive for: Normal appearance Neck: Positive for: Normal, Painless ROM, Supple Cardiovascular/Chest: Positive for: Regular Rate, Rhythm Respiratory: Positive for: Normal Breath Sounds. Negative for: Respiratory Distress Gastrointestinal/Abdominal: Positive for: Normal Exam, Soft Extremity: Positive for: Normal ROM Neurologic/Psych: Positive for: Alert, Oriented. Negative for: Motor/Sensory Deficits - ECG O2 Sat by Pulse Oximetry: 98 (RA) Pulse Ox Interpretation: Normal Medical Decision Making Medical Decision Makin Initial impression: alcohol intoxication Initial plan: Await clinical sobriety 0530 Upon re-evaluation patient is awake, alert, and oriented x3. Patient walks with a steady gait and is clinically sober. Patient is stable for discharge home. Dx: alcohol intoxication ~ Scribe Attestation: Documented by Zahira Maher, acting as a scribe for Brennen Hopper MD. Provider Scribe Attestation: All medical record entries made by the Scribe were at my direction and personally dictated by me. I have reviewed the chart and agree that the record accurately reflects my personal performance of the history, physical exam, medical decision making, and the department course for this patient. I have also personally directed, reviewed, and agree with the discharge instructions and disposition. Disposition - Clinical Impression Clinical Impression: Alcohol intoxication - Patient ED Disposition Is Patient to be Admitted: No - Disposition Disposition: Routine/Home Disposition Time: 05:30 Condition: STABLE Instructions: Alcohol Abuse and Alcoholism (DC) Forms: [employer] (Albanian)
[2018-02-05 05:34] VITALS: BP 124/79; PULSE 86; TEMP 97.8
[2018-02-05 05:35] VITALS: O2SAT 98
== END 2018-02-05 06:05 | disposition home or self-care (01) ==
LOC: H.ER 00:35
DX: F10.129 Alcohol abuse with intoxication, unspecified (principal)

== ENCOUNTER 2018-02-06 06:00 | Emergency (ER) | payer MEDICAID ==
[2018-02-06 06:00] VITALS: BMI 24.3
[2018-02-06 06:09] VITALS: BP 136/93; PULSE 86; RESP 18; TEMP 97.8; O2SAT 96
--- NOTE | 2018-02-06 06:36 | ED PDOC ---
HPI: Psych/Substance Abuse Time Seen by Provider: 02/06/18 06:13 Chief Complaint (Nursing): Alcohol Ingestion Chief Complaint (Provider): ETOH History Per: Patient History/Exam Limitations: no limitations Onset/Duration Of Symptoms: Sudden Onset Current Symptoms Are (Timing): Still Present Additional Complaint(s): 37 year old male, brought in by EMS after being found asleep outside of [facility], presents to ED due to alcohol intoxication and has a history of alcohol abuse. Patient noted to have requested food when in triage. Denies having any medical complaints. Patient is well known to the provider for multiple visits. PCP: None Past Medical History Reviewed: Historical Data, Nursing Documentation, Vital Signs Vital Signs: Last Vital Signs Temp 97.8 F 02/06/18 06:07 Pulse 86 02/06/18 06:07 Resp 18 02/06/18 06:07 BP 136/93 H 02/06/18 06:07 Pulse Ox 96 02/06/18 06:07 - Medical History PMH: Anxiety, Back Problems, Fractures, Gastritis Denies: HIV, HTN, Chronic Kidney Disease, Seizures, Sexually Transmitted Disease - Family History Family History: States: Unknown Family Hx - Social History Current smoker - smoking cessation education provided: No Ex-Smoker (has not smoked in the last 12 months): No Alcohol: > 2 Drinks/Day Drugs: Denies - Immunization History Hx Tetanus Toxoid Vaccination: No Hx Influenza Vaccination: No Hx Pneumococcal Vaccination: No - Allergies Allergies/Adverse Reactions: Allergies Allergy/AdvReac Type Severity Reaction Status Date / Time No Known Allergies Allergy Verified 02/04/18 01:34 Review of Systems ROS Statement: Except As Marked, All Systems Reviewed And Found Negative Constitutional: Negative for: Fever Psych: Negative for: Suicidal ideation Physical Exam - Reviewed Nursing Documentation Reviewed: Yes Vital Signs Reviewed: Yes - Physical Exam Appears: Positive for: Well, Non-toxic, No Acute Distress Head Exam: Positive for: ATRAUMATIC, NORMAL INSPECTION, NORMOCEPHALIC Skin: Positive for: Normal Color, Warm, DRY Eye Exam: Positive for: EOMI, Normal appearance, PERRL ENT: Positive for: Normal ENT Inspection Neck: Positive for: Normal, Painless ROM Cardiovascular/Chest: Positive for: Regular Rate, Rhythm. Negative for: Murmur Respiratory: Positive for: Normal Breath Sounds. Negative for: Respiratory Distress Gastrointestinal/Abdominal: Positive for: Normal Exam, Soft. Negative for: Tenderness Back: Positive for: Normal Inspection Extremity: Positive for: Normal ROM. Negative for: Pedal Edema, Deformity Neurologic/Psych: Positive for: Alert, Oriented (x3), Gait (steady). Negative for: Motor/Sensory Deficits - ECG O2 Sat by Pulse Oximetry: 96 (RA) Pulse Ox Interpretation: Normal Medical Decision Making Medical Decision Making: Time: --06:15 Impression: --37 yo male with alcohol intoxication Plan: --Discharge home Scribe Attestation: Documented by Jorge Valderrama acting as a scribe for Brennen Hopper MD. Provider Attestation: All medical record entries made by the Scribe were at my direction and personally dictated by me. I have reviewed the chart and agree that the record accurately reflects my personal performance of the history, physical exam, medical decision making, and the department course for this patient. I have also personally directed, reviewed, and agree with the discharge instructions and disposition. Disposition - Clinical Impression Clinical Impression: Alcohol use - Disposition Disposition: Routine/Home Disposition Time: 06:15 Condition: STABLE Instructions: Alcohol Use - When Is Drinking a Problem? Forms: [facility] (Iranian)
== END 2018-02-06 06:51 | disposition home or self-care (01) ==
LOC: H.ER 06:00
DX: F10.129 Alcohol abuse with intoxication, unspecified (principal); F41.9 Anxiety disorder, unspecified

== ENCOUNTER 2018-02-17 22:36 | Emergency (ER) | payer MEDICAID ==
[2018-02-17 22:36] VITALS: BMI 24.3
[2018-02-17 22:47] VITALS: RESP 18; O2SAT 98
--- NOTE | 2018-02-17 23:45 | ED PDOC ---
HPI: Psych/Substance Abuse Time Seen by Provider: 02/17/18 23:09 Chief Complaint (Nursing): Alcohol Ingestion Chief Complaint (Provider): ETOH Intoxication ED Caveat: Intoxicated History Per: Patient, EMS History/Exam Limitations: intoxication Onset/Duration Of Symptoms: Hrs Current Symptoms Are (Timing): Still Present Additional Complaint(s): 37 yo male brought in by [facility] for alcohol intoxication, presents to the ED after being found sleeping on a park bench. Of note, patient is well known to ED and staff for multiple visits related to ETOH intoxication. He currently states that he "drank way too much" tonight, but denies any physical complaints at this time. Patient states that "I just need to rest". Past Medical History Reviewed: Historical Data, Nursing Documentation, Vital Signs Vital Signs: Last Vital Signs Temp 98.5 F 02/17/18 22:44 Pulse 84 02/17/18 22:44 Resp 18 02/17/18 22:44 BP 125/78 02/17/18 22:44 Pulse Ox 98 02/17/18 22:44 - Medical History PMH: Anxiety, Back Problems, Fractures, Gastritis Denies: HIV, HTN, Chronic Kidney Disease, Seizures, Sexually Transmitted Disease - Surgical History Surgical History: No Surg Hx - Family History Family History: States: Unknown Family Hx - Social History Current smoker - smoking cessation education provided: Yes (heavy) Alcohol: > 2 Drinks/Day Drugs: Other (yes) - Home Medications Home Medications: Ambulatory Orders Medication Instructions Recorded No Known Home Med 02/14/18 - Allergies Allergies/Adverse Reactions: Allergies Allergy/AdvReac Type Severity Reaction Status Date / Time No Known Allergies Allergy Verified 02/14/18 01:43 Review of Systems ROS Statement: Except As Marked, All Systems Reviewed And Found Negative ( patient is currently intoxicated) Review Of Systems: ROS cannot be obtained secondary to pt's inabilty to answer questions. Physical Exam - Reviewed Nursing Documentation Reviewed: Yes Vital Signs Reviewed: Yes - Physical Exam Appears: Positive for: Non-toxic, No Acute Distress (intoxicated) Head Exam: Positive for: ATRAUMATIC, NORMOCEPHALIC Skin: Positive for: Normal Color, Warm, Dry Eye Exam: Positive for: EOMI, PERRL, Conjunctival injection (bilateral) ENT: Positive for: Pharynx Is (clear, uvula midline (-) stridor; mucus membranes moist.) Neck: Positive for: Painless ROM, Supple Cardiovascular/Chest: Positive for: Regular Rate, Rhythm. Negative for: Murmur Respiratory: Positive for: Normal Breath Sounds. Negative for: Decreased Breath Sounds, Accessory Muscle Use, Respiratory Distress Gastrointestinal/Abdominal: Positive for: Soft. Negative for: Tenderness, Distended, Guarding Back: Negative for: Vertebral Tenderness Extremity: Positive for: Normal ROM. Negative for: Deformity Neurologic/Psych: Positive for: Alert, Other (speech is slurred). Negative for : Aphasia, Facial Droop - ECG O2 Sat by Pulse Oximetry: 98 Pulse Ox Interpretation: Normal Medical Decision Making Medical Decision Making: Time: --23:30 Impression: --ETOH Intoxication Plan: --alcohol serum --accucheck --re-evaluation 0048 ETOH level: 359 Fingerstick: 94 Patient sleeping comfortably in ED stretcher, no acute distress noted. 0400 Patient sleeping comfortably in ED. Easily arousable. 0545 Patient ambulatory in ED with a steady, unassisted gait. Patient requesting to brush his teeth and wash his face at this time. On exam, patient now AAOx3, in no acute distress. Lungs clear to auscultation, cardiac RRR, abdomen soft, non-tender, repeat neuro exam shows no focal findings. VSS, stable for discharge. Lab/Diagnostic results d/w the patient in great detail. Diagnosis of alcohol intoxication d/w the patient. Based on history, exam and diagnostic results, plan will be for outpatient follow up. Patient instructed to follow-up with pmd / referral provided / the clinic in 1- 2 days without fail. Return to the emergency room at any time for any new or worsening symptoms. Patient states he fully agrees with and understands discharge instructions. States that he agrees with the plan and disposition. Verbalized and repeated discharge instructions and plan. I have given the patient opportunity to ask any additional questions. Scribe Attestation: Documented by Jorge Valderrama acting as a scribe for DONNA Augustin. Provider Attestation: All medical record entries made by the Scribe were at my direction and personally dictated by me. I have reviewed the chart and agree that the record accurately reflects my personal performance of the history, physical exam, medical decision making, and the department course for this patient. I have also personally directed, reviewed, and agree with the discharge instructions and disposition. Disposition - Clinical Impression Clinical Impression: Alcohol intoxication, Alcohol abuse - Patient ED Disposition Is Patient to be Admitted: No Counseled Patient/Family Regarding: Studies Performed, Diagnosis, Need For Followup, Rx Given - Disposition Referrals: [facility] [Outside] Disposition: Routine/Home Disposition Time: 05:49 Condition: FAIR Instructions: Effects of Alcohol on Your Health, Alcohol Intoxication (ED), Abuse of Alcohol (ED) Forms: [employer] (Romansh) Print Language: SAUDI ARABIAN - POA Present On Arrival: None Results - Lab Results Lab Results: 02/18/18 02/18/18 00:17 00:06 POC Glucose (mg/dL) 94 Alcohol, Quantitative 359 H*
[2018-02-18 08:28] VITALS: BP 132/88; PULSE 80; TEMP 98
== END 2018-02-18 06:05 | disposition home or self-care (01) ==
LOC: H.ER 22:36
DX: F10.129 Alcohol abuse with intoxication, unspecified (principal); F17.200 Nicotine dependence, unspecified, uncomplicated; F41.9 Anxiety disorder, unspecified; Y90.8 Blood alcohol level of 240 mg/100 ml or more

== ENCOUNTER 2018-03-08 23:07 | Emergency (ER) | payer MEDICAID ==
[2018-03-08 23:07] VITALS: BMI 24.3
--- NOTE | 2018-03-09 00:31 | ED PDOC ---
HPI: Psych/Substance Abuse Time Seen by Provider: 03/08/18 23:13 Chief Complaint (Nursing): Alcohol Ingestion Chief Complaint (Provider): alcohol ingestion History Per: Patient History/Exam Limitations: no limitations Onset/Duration Of Symptoms: Hrs (today) Current Symptoms Are (Timing): Still Present Suicide/Self Injury Attempted (Context): None Involuntary Hold By: None Additional Complaint(s): Ferny Allred is a 37 year old male, with a past history of alcohol abuse, who presents to the emergency department for alcohol intoxication today. Patient is well known to the ED for multiple visits for alcohol abuse. He denies any physical complaints at this time. PMD: None provided. Past Medical History Reviewed: Historical Data, Nursing Documentation, Vital Signs Vital Signs: Last Vital Signs Temp 98.8 F 03/08/18 23:16 Pulse 88 03/08/18 23:16 Resp 18 03/08/18 23:16 BP 125/68 03/08/18 23:16 Pulse Ox 96 03/08/18 23:16 - Medical History PMH: Anxiety, Back Problems, Fractures, Gastritis Denies: HIV, HTN, Chronic Kidney Disease, Seizures, Sexually Transmitted Disease - Surgical History Surgical History: No Surg Hx - Family History Family History: States: Unknown Family Hx - Social History Current smoker - smoking cessation education provided: Yes (Heavy smoker) Alcohol: > 2 Drinks/Day - Immunization History Hx Tetanus Toxoid Vaccination: No Hx Influenza Vaccination: No Hx Pneumococcal Vaccination: No - Home Medications Home Medications: Ambulatory Orders Medication Instructions Recorded No Known Home Med 02/14/18 - Allergies Allergies/Adverse Reactions: Allergies Allergy/AdvReac Type Severity Reaction Status Date / Time No Known Allergies Allergy Verified 02/14/18 01:43 Review of Systems ROS Statement: Except As Marked, All Systems Reviewed And Found Negative Constitutional: Positive for: Other (ETOH intoxication) Physical Exam - Reviewed Nursing Documentation Reviewed: Yes Vital Signs Reviewed: Yes - Physical Exam Appears: Positive for: Non-toxic, No Acute Distress (ETOH on breath) Head Exam: Positive for: ATRAUMATIC, NORMOCEPHALIC Skin: Positive for: Normal Color, Warm, Dry Eye Exam: Positive for: Normal appearance, EOMI, PERRL ENT: Positive for: Normal ENT Inspection Neck: Positive for: Painless ROM, Supple Cardiovascular/Chest: Positive for: Regular Rate, Rhythm. Negative for: Murmur Respiratory: Positive for: Normal Breath Sounds. Negative for: Respiratory Distress Gastrointestinal/Abdominal: Positive for: Normal Exam, Soft. Negative for: Tenderness Back: Positive for: Normal Inspection. Negative for: L CVA Tenderness, R CVA Tenderness, Vertebral Tenderness Extremity: Positive for: Normal ROM (upper and lower extremities). Negative for : Deformity, Swelling Neurologic/Psych: Positive for: Alert, Oriented, Other (slurred speech) - ECG O2 Sat by Pulse Oximetry: 96 (RA) Pulse Ox Interpretation: Normal Medical Decision Making Medical Decision Making: Initial Impression: 37 y/o male with alcohol intoxication Initial Plan: --Alcohol serum --Accucheck --Reevaluation 05:45 Upon reevaluation patient is sober and medically stable for discharge. ----- Scribe Attestation: Documented by Jaxson Cortés, acting as a scribe for Brennen Hopper MD. Provider Scribe Attestation: All medical record entries made by the Scribe were at my direction and personally dictated by me. I have reviewed the chart and agree that the record accurately reflects my personal performance of the history, physical exam, medical decision making, and the department course for this patient. I have also personally directed, reviewed, and agree with the discharge instructions and disposition. Disposition - Clinical Impression Clinical Impression: Alcohol intoxication - Disposition Disposition: Routine/Home Disposition Time: 05:45 Condition: STABLE Instructions: Alcohol Abuse and Alcoholism (DC) Forms: [employer] (Mexican)
[2018-03-09 06:01] VITALS: BP 129/71; PULSE 63; RESP 16; TEMP 98.3; O2SAT 98
== END 2018-03-09 06:01 | disposition home or self-care (01) ==
LOC: H.ER 23:07
DX: F10.129 Alcohol abuse with intoxication, unspecified (principal); F17.200 Nicotine dependence, unspecified, uncomplicated; F41.9 Anxiety disorder, unspecified

== ENCOUNTER 2018-09-21 23:11 | Emergency (ER) | payer SELFPAY ==
[2018-09-21 23:11] VITALS: BMI 24.3
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
[2018-09-22 05:28] VITALS: TEMP 98.2
[2018-09-22 05:29] VITALS: PULSE 86
[2018-09-22 06:29] LABS: BARBITURATES, UR NEGATIVE (NEGATIVE); BENZODIAZEPINES, UR NEGATIVE (NEGATIVE); OPIATES, UR NEGATIVE (NEGATIVE); PHENCYCLIDINE, UR NEGATIVE (NEGATIVE)
[2018-09-22 06:47] VITALS: BP 118/78; RESP 16; O2SAT 98
== END 2018-09-22 06:47 | disposition home or self-care (01) ==
LOC: H.ER 23:11
DX: F19.10 Other psychoactive substance abuse, uncomplicated (principal); F41.9 Anxiety disorder, unspecified
CPT/HCPCS: 82948; 99283; G0480

== ENCOUNTER 2019-01-24 22:01 | Emergency (ER) | payer SELFPAY ==
[2019-01-24 22:02] VITALS: BMI 24.3
[2019-01-24 22:11] VITALS: RESP 16
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
[2019-01-25 06:31] VITALS: BP 128/86; PULSE 84; TEMP 98.4; O2SAT 99
== END 2019-01-25 06:20 | disposition home or self-care (01) ==
LOC: H.ER 22:01
DX: F10.129 Alcohol abuse with intoxication, unspecified (principal); F41.9 Anxiety disorder, unspecified
CPT/HCPCS: 82948; 99283; G0480

== ENCOUNTER 2019-02-04 23:44 | Emergency (ER) | payer SELFPAY ==
[2019-02-04 23:44] VITALS: BMI 24.3
[2019-02-05 03:04] LABS: BASO # 0.1 K/uL (0.0-0.2); BASO % 0.6 % (0.0-2.0); EOS # 0.2 K/uL (0.0-0.7); EOS % 2.1 % (0.0-4.0); LYMPH # 2.2 K/uL (1.0-4.3); LYMPH % 21.4 % (20.0-40.0); MEAN CELL VOLUME 90.6 fl (80.0-94.0); MEAN CORPUSCULAR HEMOGLOBIN 31.5 pg (27.0-31.0); MEAN CORPUSCULAR HGB CONC 34.8 g/dL (33.0-37.0); MEAN PLATELET VOLUME 6.6 fl (7.2-11.7); MONO # 0.8 K/uL (0.0-0.8); MONO % 7.3 % (0.0-10.0); NEUT # 7.2 K/uL (1.8-7.0); NEUT % 68.6 % (50.0-75.0); RBC 4.44 Mil/uL (4.40-5.90); RED CELL DISTRIBUTION WIDTH 13.3 % (11.5-14.5); WHITE BLOOD COUNT 10.5 K/uL (4.8-10.8)
[2019-02-05] MEDS ORDERED: Naproxen 500 MG TAB PO ONE (03:09)
[2019-02-05 03:10] LABS: ALB/GLOB RATIO 1.4 (1.0-2.1); ALBUMIN 4.7 g/dL (3.5-5.0); ALT/SGPT 28 U/L (21-72); AST/SGOT 51 U/L (17-59); BLOOD UREA NITROGEN 13 mg/dl (9-20); CALCIUM 9.2 mg/dL (8.4-10.2); GFR NON-AFRICAN AMERICAN > 60
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
[2019-02-05 03:36] LABS: SQUAMOUS EPITHIAL < 1 /hpf (0-5); URINE BACTERIA RARE (<OCC); URINE BILIRUBIN NEGATIVE (NEGATIVE); URINE BLOOD NEGATIVE (NEGATIVE); URINE CLARITY SLIGHTY-CLOUDY (Clear); URINE COLOR YELLOW (YELLOW); URINE GLUCOSE (UA) NEG (NEGATIVE); URINE LEUKOCYTE ESTERASE NEG Leu/uL (Negative); URINE PROTEIN NEGATIVE (NEGATIVE); URINE UROBILINOGEN 0.2-1.0 mg/dL (0.2-1.0)
[2019-02-05 03:53] LABS: BARBITURATES, UR NEGATIVE (NEGATIVE); BENZODIAZEPINES, UR NEGATIVE (NEGATIVE); OPIATES, UR NEGATIVE (NEGATIVE); PHENCYCLIDINE, UR NEGATIVE (NEGATIVE)
[2019-02-05 05:02] VITALS: BP 138/79; PULSE 79; RESP 17; TEMP 98; O2SAT 98
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
== END 2019-02-05 05:17 ==
LOC: H.ER 23:44
DX: F10.129 Alcohol abuse with intoxication, unspecified (principal); F43.22 Adjustment disorder with anxiety; S00.12XA Contusion of left eyelid and periocular area, initial encounter; S00.81XA Abrasion of other part of head, initial encounter; J45.909 Unspecified asthma, uncomplicated
CPT/HCPCS: 70450; 70486; 80053; 81003; 82948; 85025; 99282; G0480